=== PATIENT | male | born 1995 | race Caucasian/White ===

== ENCOUNTER 2024-12-04 09:19 | Outpatient (REF) | payer OTHER, SELFPAY ==
[2024-12-04 13:14] LABS: Appearance Urine Clear; Glucose Urine UA Negative (Negative); PH 7.5 (5.0-9.0); Specific Gravity - Urine 1.010 (1.005-1.025)
[2024-12-04 13:16] LABS: MANUAL DIFF FLAG NO
[2024-12-04 13:30] LABS: Hematocrit 45.8 % (42.0-52.0); Hemoglobin 15.6 g/dl (14.0-18.0); Imm Gran Abs Auto 0.01 X10*3/uL (0.00-0.03); Imm Gran Pct Auto 0.2 % (0.0-0.4); Lymphocytes Absolute Auto 2.0 X10*3/uL (1.2-4.9); Mean Corpuscular HGB Conc 34.1 g/dl (31.0-36.0); Mean Corpuscular Hemoglobin 30.6 pg (27.0-33.0); Mean Corpuscular Volume 90.0 fL (80.0-98.0); NRBC Abs Auto 0.000 X10*3/uL (0.0-0.012); NRBC Pct Auto 0.0 /100WBC (0.0-0.2); Platelet Count 333 X10*3/uL (160-400); Red Blood Count 5.09 X10*6/uL (4.60-5.80); White Blood Count 6.4 X10*3/uL (4.8-10.8)
[2024-12-04 14:14] LABS: Folate 13.7 ng/mL (> or = 4.0); Vitamin B12 613 pg/mL (200-900)
[2024-12-04 14:16] LABS: Alanine Aminotransferase 307 U/L (0-40); Albumin Level 4.7 g/dL (3.5-5.0); Alkaline Phosphatase 56 U/L (39-117); Anion Gap 10 (12-20); Aspartate Amino Transferase 750 U/L (5-37); Blood Urea Nitrogen 17 mg/dL (9-16); Calcium 9.8 mg/dL (8.4-10.2); Carbon Dioxide 30 mmol/L (22-29); Chloride 103 mmol/L (96-108); Cholesterol 211 mg/dL (<200); Estimated Glomerular Filt Rate > 60; HDL Cholesterol 57 mg/dL (>40); Potassium 3.9 mmol/L (3.3-5.1); Sodium 139 mmol/L (135-145); Total Protein 7.3 g/dL (6.5-8.0); Triglycerides 92 mg/dL (<150)
[2024-12-05 04:04] LABS: HBS Num1 16.38 mIU/mL (0-7.99); HBsAGNum1 0.50 S/CO (0.00-0.99); HIV Num 1 0.05 S/CO (0.00-0.99); Hepatitis B Surface Antigen Negative (Negative); ~HepC Num1 0.07 S/CO (0.00-0.79); ~Hepatitis B Surface Antibody REACTIVE (Nonreactive); ~Hepatitis C Antibody Nonreactive (Nonreactive)
[2024-12-08 12:53] LABS: VITAMIN D (1,25 OH) D3 47 pg/mL; Vit D (1,25-Dihydroxy) Total 47 pg/mL (18-72); Vitamin D (1,25 OH) D2 <8 pg/mL
== END 2024-12-04 09:20 | disposition home or self-care (01) ==
LOC: HO.HKASLDS 09:19
PROVIDERS: PCP Student in an Organized Health Care Education/Training Program; Visit Provider Student in an Organized Health Care Education/Training Program
DX: Z13.9 Encounter for screening, unspecified (principal); K21.9 Gastro-esophageal reflux disease without esophagitis; Z79.899 Other long term (current) drug therapy
CPT/HCPCS: 36415; 80053; 80061; 81003; 82607; 82652; 82746; 83036; 84443; 85025; 86706; 86803; 87340; 87389; 96127; 99202

== ENCOUNTER 2024-12-04 09:19 | Outpatient (AMB) | payer OTHER, SELFPAY ==
--- NOTE | 2024-12-04 09:26 | A.OFFPC_ITS ---
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: No Accompanied by: Self / Same As Patient Allergies No Known Allergies Allergy (Verified 12/04/24 09:33) Medication List - Last Reconciled 12/04/24 by Jonatan Heller MD famotidine 10 mg PO DAILY Tobacco use date assessed: 12/04/24 Dental Screening Dental Screen Date: 12/04/24 Did you have a dental visit in the last 12 months?: No Did you have a dental problem in the last 6 months where you did not have access to dental care?: No Was dental information given to patient?: Patient has dentist HPI HPI Comments History of Present Illness Details Consent Patient was informed and verbally consented to the use of an ambient scribe for clinic note documentation during this visit. History of Present Illness The patient is a 28-year-old male presenting with Gastroesophageal Reflux Disease (GERD). Gastroesophageal Reflux Disease (GERD): The patient reports having GERD for three years, initially managed with pantoprazole, which was ineffective, leading to self-initiation of famotidine seven months ago with good results. He has not undergone an endoscopy and expresses interest in the procedure for further evaluation, influenced by his girlfriend, a nurse. A Helicobacter pylori breath test conducted in November 2023 was negative. The onset of GERD symptoms coincided with his time in the , possibly related to dietary changes or stress, but no definitive cause was identified. He denies any history of hypertension, diabetes, or other chronic conditions, and his last medical consultation was in 2023. Medications: - Famotidine: Taken for management of GE RD, effective for symptom control. 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 - Substance Use: Light alcohol consumpti on, approximately three times a month. - Diet: Eats three meals a day at 8:00 a .m., noon, and 6:00 p.m., with a bedtime at 11:00 p.m. Diagnostic Results: - Helicobacter pylori breath test: Negat fabricio (November 2023). Review of Systems - Gastrointestinal: Reports effective ma nagement of GERD symptoms with famotidine. Denies nausea or vomiting. - General: Denies snoring, waking up gas ping for air, or sleep disturbances. 10-point ROS reviewed and negative excep t as noted in HPI Past Medical History - Gastroesophageal Reflux Disease (GERD) for three years. Health Maintenance - Screening tests: Comprehensive metabol ic panel, hemoglobin A1c, lipid panel, vitamin B12, folate, vitamin D, and urinalysis planned. Physical Exam General: Well-appearing, in no acute distress. Vital signs: Within normal limits. HEENT: Normocephalic, atraumatic. PERRLA, EOMI. Conjunctiva clear, sclera anicteric. Oropharynx clear, mucous membranes moist. TMs intact bilaterally. Neck: Supple, no lymphadenopathy, no thyromegaly, no JVD or carotid bruits. Cardiovascular: RRR, normal S1/S2, no murmurs, rubs, or gallops. Peripheral pulses 2+ and symmetric. No edema. Respiratory: Lungs clear to auscultation bilaterally, no wheezes, rales, or rhonchi. Normal effort. Abdomen: Soft, non-tender, non-distended. Normoactive bowel sounds. No hepatosplenomegaly, no masses. MSK: Full range of motion, no joint swelling or deformity. Normal gait. Skin: Warm, dry, intact. No rashes, lesions, or pallor. Neuro: Alert and oriented x3. Cranial nerves II-XII intact. Strength 5/5 throughout. Sensation intact. Reflexes 2+ symmetric. Normal coordination and gait. Psych: Appropriate mood and affect. Normal judgment and insight. Plan 1. Gastroesophageal Reflux Disease (Gerd ) - Continue famotidine as it is effective in managing symptoms. - Consider referral to gastroenterology for further evaluation if symptoms persist. - Plan for comprehensive metabolic panel , hemoglobin A1c, lipid panel, vitamin B12, folate, vitamin D, and urinalysis to assess overall health. Discussion Notes I discussed with the patient the continuation of famotidine for GERD management, given its effectiveness. We also considered a potential referral to gastroenterology for further evaluation if symptoms persist. I recommended a comprehensive metabolic panel and other screenings to assess his overall health. Patient Instructions - Continue taking famotidine as prescrib ed. - Return for follow-up in two weeks to chantel lopez lab results. - Consider gastroenterology referral if symptoms do not improve. Medical Decision Making The patient's GERD is well-managed with famotidine, which he initiated after pantoprazole was ineffective. Given the chronic nature of his symptoms and the negative H. pylori test, I considered a gastroenterology referral for further evaluation. Screening labs were ordered to assess his overall health status. Total time spent caring for the patient today was 30 minutes. This includes time spent before the visit reviewing the chart, time spent documenting, and time spent reviewing laboratory results, diagnostic imaging, medications, performing a medically necessary evaluation, counseling on diagnoses, care coordination, ordering appropriate tests, ordering appropriate medications, review of tests performed by other providers, reporting test results with the patient, c ommunication with other healthcare providers. [facility] Family History (Updated 12/04/24 @ 09:28 by Gabe Tovar MA) Mother No problems noted. Father No problems noted. Social History Housing: Apartment Patient Tobacco Use Status: Never used Tobacco service: Yes Current occupational status: employed Cognitive needs: No Hearing needs: No Vision needs: No Questionnaire PHQ-9 Over the last 2 weeks, how often have you been bothered by any of the following problems? 1. Little interest or pleasure in doing things: not at all 2. Feeling down, depressed, or hopeless: not at all 3. Trouble falling or staying asleep, or sleeping too much: not at all 4. Feeling tired or having little energy: not at all 5. Poor appetite or overeating: not at all 6. Feeling bad about yourself - or that you are a failure or have let yourself or your family down: not at all 7. Trouble concentrating on things, such as reading the newspaper or watching television: not at all 8. Moving or speaking so slowly that other people could have noticed. Or the opposite - being so fidgety or restless that you have been moving around a lot more than usual: not at all 9. Thoughts that you would be better off or of hurting yourself in some way: not at all Total score: 0 Depression Screening Interpretation: Negative Depression Screening Done: Yes Source: Developed by Drs. Mehnaz Cruz Kurt Kroenke and colleagues, with an educational gloria from [employer] Thrive Questionnaire Date Thrive assessed: 12/04/24 I am a: Patient What is your living situation today?: I have a steady place to live Within the past 12 months, did the food you bought not last and you didn't have the money to get more?: Never true Within the past 12 months, did you worry whether your food would run out before you got money to buy more?: Never true Do you have trouble paying for medicines?: No Do you have trouble getting transportation to medical appointments?: No Do you have trouble paying your heating and electricity bill?: No Do you have trouble taking care of your child, family member or friend?: No Are you currently unemployed and looking for a job?: No Are you interested in more education?: No Please select the resources that you would like help with: None Currently or been in a relationship where the following occur: No concerns reported THRIVE Score: 0 AUDIT C Alcohol Use Questionnaire (AUDIT-C) 1. How often do you have a drink containing alcohol?: 2-4 times a month 2. How many drinks containing alcohol do you have on a typical day when you are drinking?: 3 or 4 3. How often do you have six or more drinks on one occasion?: Less than monthly Total Score: 4 Score Reviewed/Action Taken: No ALFRED-7 AMB Questionnaire ALFRED-7 Feeling nervous, anxious, or on edge: 0 = Not at all Not being able to stop or control worryin = Not at all Worrying too much about different things: 0 = Not at all Trouble relaxin = Not at all Being so restless that it is hard to sit still: 0 = Not at all Becoming easily annoyed or irritable: 0 = Not at all Feeling afraid as if something awful might happen: 0 = Not at all Total ALFRED-7 score (0-4 normal; 5-9 mild; 10-14 moderate; 15-21 severe): 0 Source: Developed by Mehnaz Ruiz Kurt Kroenke and colleagues, with an educational gloria from [employer] ALFRED-7 Assessment Billing ALFRED-7 Assessment Tool: ALFRED-7 Assessment 63173 (neg) Physical exam (Primary Care) Vital Signs: Last Vital Signs Temp 97.9 F 12/04/24 09:32 Pulse 70 12/04/24 09:32 Resp 16 12/04/24 09:32 BP 136/75 12/04/24 09:32 Pulse Ox 100 12/04/24 09:32 Oxygen Delivery Method Room Air 12/04/24 09:32 BMI result Body Mass Index 20.9 Tobacco/Smoking Status: Tobacco use Status Tobacco use date assessed 12/04/24 12/04/24 09:28 Patient Tobacco Use Status Never used Tobacco 12/04/24 09:28 PHQ-9: PHQ-9 Score PHQ-9: Total score 0 12/04/24 09:54 Depression Screening Interpretation: Negative Thrive Assessment: Date of Thrive Assessment Date Thrive assessed 12/04/24 12/04/24 09:28 Currently or been in a relationship where the following occur: No concerns reported Coding Level of Care Code New Pt Level 4 (16071) Diagnoses GERD (gastroesophageal reflux disease) K21.9 Additional Codes ALFRED-7 Assessment Billing - ALFRED-7 Assessment Tool: ALFRED-7 Assessment 53927 ([id number]) Assessment & Plan Assessment & Plan (1) GERD (gastroesophageal reflux disease): Code(s): K21.9 - Gastro-esophageal reflux disease without esophagitis Plan Orders: Orders Complete Blood Count Auto Diff Today Z. - Encounter for screening, unspecified Comprehensive Met. Panel Today Z. - Encounter for screening, unspecified Hepatitis B Surface Antibody Today Z. - Encounter for screening, unspecified Hepatitis B Surface Antigen Today Z13.9 - Encounter for screening, unspecified Lipid Panel Today Z13.9 - Encounter for screening, unspecified TSH reflex Free T4 Today Z13.9 - Encounter for screening, unspecified Vitamin B12 and Folate Today Z13.9 - Encounter for screening, unspecified Hemoglobin A1c Today Z13.9 - Encounter for screening, unspecified Hepatitis C Antibody Today Z13.9 - Encounter for screening, unspecified HIV Ab/Ag Today Z13.9 - Encounter for screening, unspecified UA CC w/rflx Micro + Cult Today Z13.9 - Encounter for screening, unspecified Vitamin D 1,25 dihydroxy Today Z13.9 - Encounter for screening, unspecified Medications: New famotidine 10 mg PO DAILY 90 tabs 0RF
[2024-12-04 09:32] VITALS: BP 136/75; PULSE 70; RESP 16; TEMP 36.6; O2SAT 100; BMI 20.9
== END 2024-12-04 10:01 | disposition home or self-care (01) ==
LOC: HO.HMCFMS 09:20
PROVIDERS: PCP Student in an Organized Health Care Education/Training Program; Visit Provider Student in an Organized Health Care Education/Training Program
DX: K21.9 Gastro-esophageal reflux disease without esophagitis (principal)

== ENCOUNTER 2024-12-18 12:58 | Outpatient (AMB) | payer OTHER, SELFPAY ==
[2024-12-18 13:00] VITALS: BP 133/63; PULSE 83; RESP 16; TEMP 36.6; O2SAT 100
--- NOTE | 2024-12-18 13:00 | A.OFFPC_ITS ---
Vital Signs 12/18/24 13:00 Height 5 ft 11.26 in BP 133/63 Blood Pressure Location Rt brachial Position Sitting Respiration 16 Pulse 83 Pulse Source Pulse Oximeter Temp 98 F Temp Source Oral Pulse Oximetry (%) 100 Oxygen Delivery Method Room Air Intake Visit Reasons: 2 week follow up Allergies No Known Allergies Allergy (Verified 12/18/24 13:03) Tobacco use date assessed: 12/04/24 Dental Screening Dental Screen Date: 12/04/24 HPI HPI Comments History of Present Illness Details History of Present Illness The patient is a 28-year-old male presenting for a review of laboratory results. Abnormal liver function tests: The patient's recent lab work revealed extremely elevated AST and ALT levels, which is a new finding. His last laboratory tests in 2022 were normal. Tests for hepatitis B and C were negative. He reports taking a men's multivitamin, vitamin D, magnesium, and creatinine supplements. He states he is not a heavy alcohol drinker. Hypercholesterolemia: Recent lab results indicate an elevated total cholesterol of 211 mg/dL and an elevated LDL cholesterol of 136 mg/dL. 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 - Substance use: Reports he is not a big drinker and was advised to abstain from alcohol. Diagnostic Results: - CBC: White blood cells, red blood cell s, hemoglobin, and hematocrit are normal. - CMP: Sodium, potassium, and glucose ar e normal. - Renal function: Normal. - Liver function tests: AST and ALT are extremely elevated. - Lipid panel: Total cholesterol is 211 mg/dL and LDL is 136 mg/dL. - Hepatitis panel: Hepatitis B and C are normal. - Vitamins: Vitamin B12, vitamin D, and folate are normal. - Thyroid function: Normal. - Urinalysis: Normal. Past Medical History - Reports no prior medical problems; sta mani he has never had anything wrong with me. - Last laboratory evaluation in 2022 was normal. Health Maintenance - Review of screening laboratory studies . - Counseled on supplement use and to dis continue creatinine. - Counseled on alcohol avoidance. [facility] Medical History (Updated 12/18/24 @ 14:55 by Jonatan Heller MD) Dyslipidemia Elevated liver enzymes Family History (Updated 12/04/24 @ 09:28 by Gabe Tovar MA) Mother No problems noted. Father No problems noted. Social History Housing: Apartment Patient Tobacco Use Status: Never used Tobacco service: Yes Current occupational status: employed Cognitive needs: No Hearing needs: No Vision needs: No Questionnaire Thrive Questionnaire Date Thrive assessed: 12/04/24 I am a: Patient What is your living situation today?: I have a steady place to live Within the past 12 months, did the food you bought not last and you didn't have the money to get more?: Never true Within the past 12 months, did you worry whether your food would run out before you got money to buy more?: Never true Do you have trouble paying for medicines?: No Do you have trouble getting transportation to medical appointments?: No Do you have trouble paying your heating and electricity bill?: No Do you have trouble taking care of your child, family member or friend?: No Are you currently unemployed and looking for a job?: No Are you interested in more education?: No Please select the resources that you would like help with: None Currently or been in a relationship where the following occur: No concerns reported THRIVE Score: 0 Review of Systems Narrative Review of Systems - Constitutional: Denies any previous health issues. - Psychiatric: Reports feeling worried and anxious about his lab results. 10-point ROS reviewed and negative except as noted in HPI Physical exam (Primary Care) Vital Signs: Last Vital Signs Temp 98 F 12/18/24 13:00 Pulse 83 12/18/24 13:00 Resp 16 12/18/24 13:00 BP 133/63 12/18/24 13:00 Pulse Ox 100 12/18/24 13:00 Oxygen Delivery Method Room Air 12/18/24 13:00 Tobacco/Smoking Status: Tobacco use Status Tobacco use date assessed 12/04/24 12/18/24 13:02 Patient Tobacco Use Status Never used Tobacco 12/18/24 13:02 Thrive Assessment: Date of Thrive Assessment Date Thrive assessed 12/04/24 12/18/24 13:02 Currently or been in a relationship where the following occur: No concerns reported Narrative Physical Exam General: Well-appearing, in no acute distress. Vital signs: Within normal limits. HEENT: Normocephalic, atraumatic. PERRLA, EOMI. Conjunctiva clear, sclera anicteric. Oropharynx clear, mucous membranes moist. TMs intact bilaterally. Neck: Supple, no lymphadenopathy, no thyromegaly, no JVD or carotid bruits. Cardiovascular: RRR, normal S1/S2, no murmurs, rubs, or gallops. Peripheral pulses 2+ and symmetric. No edema. Respiratory: Lungs clear to auscultation bilaterally, no wheezes, rales, or rhonchi. Normal effort. Abdomen: Soft, non-tender, non-distended. Normoactive bowel sounds. No hepatosplenomegaly, no masses. MSK: Full range of motion, no joint swelling or deformity. Normal gait. Skin: Warm, dry, intact. No rashes, lesions, or pallor. Neuro: Alert and oriented x3. Cranial nerves II-XII intact. Strength 5/5 throughout. Sensation intact. Reflexes 2+ symmetric. Normal coordination and gait. Psych: Appropriate mood and affect. Normal judgment and insight. 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 The patient provided verbal consent to proceed with the recommended workup. Patient was informed and verbally consented to the use of an ambient scribe for clinic note documentation during this visit. Plan 1. Abnormal Liver Function Tests - The etiology of the elevated liver enzymes is unclear; however, viral hepatitis B and C have been ruled out. - There is suspicion for supplement-induced hepatotoxicity, possibly related to creatinine or impurities within the supplement. - A liver ultrasound will be ordered to evaluate for underlying structural abnormalities such as fatty liver. - The patient was advised to discontinue taking his creatinine supplement. - The patient was instructed to abstain from all alcohol consumption. - Additional fasting labs were ordered for tomorrow. - Liver function tests will be repeated in four weeks to monitor for resolution. 2. Hypercholesterolemia - Elevated total cholesterol and LDL were noted on recent labs. - This will be monitored, with the immediate focus on the evaluation of the patient's elevated liver enzymes. Discussion Notes I reviewed the patient's laboratory results, which showed normal cell counts, renal function, and electrolytes, but revealed extremely elevated liver enzymes (AST and ALT) and elevated cholesterol. I informed him that while the cause is not yet clear, tests for hepatitis B and C are negative. We discussed the potential for his supplements, specifically creatinine, to be causing the liver enzyme elevation, possibly due to impurities. I reassured the patient not to be overly anxious as we have identified the issue and will investigate further. I advised him to stop the creatinine supplement and to abstain from alcohol completely. The plan, which he agreed to, includes a liver ultrasound, fasting labs tomorrow, and a repeat of his liver function tests in four weeks to see if the levels normalize. Patient Instructions - Stop taking your creatinine supplement for now. - You may continue taking your multivitamin and vitamin D. - Do not drink any alcohol. - Go to the lab tomorrow morning for a fasting blood draw; this means no food or drink other than water before the test. - The lab is a walk-in, so you do not need an appointment time. - I have ordered a liver ultrasound; the imaging center will call you to schedule this. - We will need to repeat your liver blood tests in about four weeks. Medical Decision Making The patient is a 28-year-old male with new-onset, significantly elevated liver transaminases and hypercholesterolemia discovered on routine labs. The primary concern is the transaminitis, as this is a new finding compared to his normal labs from 2022. The differential diagnosis includes supplement-induced hepatotoxicity, non-alcoholic fatty liver disease (NAFLD), and viral hepatitis. Viral hepatitis is less likely as his hepatitis B and C serologies are negative. Given his use of multiple supplements, drug-induced liver injury (DILI) is a strong consideration, with creatinine being a potential offending agent, possibly due to impurities. The plan is to investigate these possibilities by first removing potential hepatotoxins; I have advised him to cease creatinine and all alcohol. A liver ultrasound is ordered to assess for steatosis or other structural abnormalities. Follow-up LFTs in four weeks will be crucial to see if the transaminitis resolves after discontinuing the supplement, which would support a diagnosis of DILI. Fasting labs tomorrow will establish a current baseline. Total time spent caring for the patient today was 20 minutes. This includes time spent before the visit reviewing the chart, time spent documenting, and time spent reviewing laboratory results, diagnostic imaging, medications, performing a medically necessary evaluation, counseling on diagnoses, care coordination, ordering appropriate tests, ordering appropriate medications, review of tests performed by other providers, reporting test results with the patient, communication with other healthcare providers. Orders: Orders Alpha 1 Anti-trypsin Today R74.8 - Abnormal levels of other serum enzymes Ceruloplasmin Today R74.8 - Abnormal levels of other serum enzymes Ferritin Today R74.8 - Abnormal levels of other serum enzymes Lactate Dehydrogenase Today R74.8 - Abnormal levels of other serum enzymes Smooth Muscle Antibody Today R74.8 - Abnormal levels of other serum enzymes Hepatitis A IgG Today R74.8 - Abnormal levels of other serum enzymes US abdomen limited Today R74.8 - Abnormal levels of other serum enzymes Gamma Glutamyl Transpeptidase Today R74.8 - Abnormal levels of other serum enzymes Mitochondrial Antibody Today R74.8 - Abnormal levels of other serum enzymes DELONTE Reflex Titer and Pattern Today R74.8 - Abnormal levels of other serum enzymes Monotest Today R74.8 - Abnormal levels of other serum enzymes IRON PROFILE Today R74.8 - Abnormal levels of other serum enzymes
--- OUTSIDE RECORDS SUMMARY | 2024-12-18 15:43 | XMS_ITS | Encounter Summary ---
Author Organization [facility] Address [address] [place] [address] Care Team Providers Care Insulating Machine Operator Name Role Phone Eloina Kyle NP Primary Care Provider Agus Christensen MD Primary Care Provider [phone] Encounter Details Date Type Department Care Team (Late st Contact Info) Description 04/06/2020 Orders Only [facility] [address] [place] [address] Eloina Kyle NP Social History Tobacco Use Types Packs/Day Years Used Date Smoking Tobacco: Never Smokeless Tobacco: Never Alcohol Use Standard Drinks/Week Comments Not Asked 0 (1 standard drink = 0.6 oz pur e alcohol) Sex and Gender Information Value Date Recorded Sex Assigned at Male 05/06/2020 3:49 PM EDT Legal Sex Male 8:44 PM EST Gender Identity Male 05/06/2020 3:49 PM EDT Sexual Orientation Straight 05/06/2020 3: 49 PM EDT documented as of this encounter Plan of Treatment Not on file documented as of this encounter Results * Due to [place] state law, this organization might not be sharing negative HIV tests. * HEMOGLOBIN A1C (05/28/2020 12:10 PM EDT) Hemoglobin A1C 4.7 <5.7 % of total Hgb [facility] Comment: For the purpose of screening for the presence of diabetes: <5.7% Consistent with the absence of diabetes 5.7-6.4% Consistent with increased risk for diabetes (prediabetes) > or =6.5% Consistent with diabetes This assay result is consistent with a decreased risk of diabetes. Currently, no consensus exists regarding use of hemoglobin A1c for diagnosis of diabetes in children. According to [place] Diabetes Association (ADA) guidelines, hemoglobin A1c <7.0% represents optimal control in non- diabetic patients. Different metrics may apply to specific patient populations. Standards of Medical Care in Diabetes(ADA). Estimated Average Glucose 90 mg/dL (calc) [facility] 05/28/2020 12:1 0 PM EDT 05/29/2020 12:58 AM EDT Narrative Resulting Agency Comment [id number] us Eloina Kyle NP LABORATORY Final Result [facility] [address] [place] [address] documented in this encounter Visit Diagnoses Diagnosis Screening for diabetes mellitus documented in this encounter Care Teams Insulating Machine Operator Relationship Specialty Start Date End Date Eloina Kyle NP PCP - General Internal Medicine 03/25/20 06/18/23 Agus Murdock MD [address] [place] [id number] PCP - General Family Medicine 09/26/23 documented as of this encounter
--- OUTSIDE RECORDS SUMMARY | 2024-12-18 15:43 | XMS_ITS | Encounter Summary ---
Author Organization [facility] Address [address] [place] [address] Care Team Providers Care Administrative Assistant Data Entry Name Role Phone Eloina Kyle NP Primary Care Provider Agus Christensen MD Primary Care Provider [phone] Reason for Visit * Reason Comments Labs/orders Encounter Details Date Type Department Care Team (Late st Contact Info) Description 08/27/2021 Telephone [facility] Night Triage [address] [place] [address] Eloina Kyle NP Labs/orders Social History Tobacco Use Types Packs/Day Years Used Date Smoking Tobacco: Never Smokeless Tobacco: Current Comments:nicotine salt packe ts. 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 Message to provider for orders. PLEASE ADVISE ON pt c/o mild pain, swollen legs, nausea r/t to rx ATB/ Doxycycline Monohydrate (MONODOX) 100 MG capsule. Per pt only one day left to finish the ATB regimen and pt asked to finish it or discontinue. No respiratory distress, confusion, fever were reported. Nurse recommended to keep to monitor the current conditions, to finish the rx Doxycycline Monohydrate (MONODOX) 100 MG capsule regiment, to elevate the swollen legs, keep good nutrition and hydration, in case of respiratory distress, confusion, fever call 911, go to ER or Urgent Care. Nurse recommended to communicate to Virtual Care Team for the further evaluation by PCP. Chief Complaint: Patient, Obinna Harvey 25 y.o. male calling with complaint of mild pain, swollen legs, nausea r/t to rx ATB/Doxycycline Monohydrate (MONODOX) 100 MG capsule. Per pt only one day left to finish the ATB regimen and pt asked to finish it or discontinue. No respiratory distress, confusion, fever were reported. Onset occurred: today Emergent symptoms: none Allergies: has No Known Allergies. Medications: No current outpatient medications on file. Pertinent hx: none Current home treatment: none. Effectiveness of current home tx: effective documented in this encounter Plan of Treatment Not on file documented as of this encounter Visit Diagnoses Not on filedocumented in this encounter Care Teams Administrative Assistant Data Entry Relationship Specialty Start Date End Date Eloina Kyle NP PCP - General Internal Medicine 03/25/20 06/18/23 Agus Murdock MD [address] [place] [address] PCP - General Family Medicine 09/26/23 documented as of this encounter
--- OUTSIDE RECORDS SUMMARY | 2024-12-18 15:43 | XMS_ITS | Encounter Summary ---
Author Organization [facility] Address [address] [place] [address] Care Team Providers Care Lamp Shade Maker Name Role Phone Eloina Kyle NP Primary Care Provider Agus Christensen MD Primary Care Provider [phone] Encounter Details Date Type Department Care Team (Late st Contact Info) Description 08/12/2021 Orders Only [facility] [address] [place] [address] Eloina Kyle NP Social History Tobacco Use Types Packs/Day Years Used Date Smoking Tobacco: Never Smokeless Tobacco: Current Comments:nicotine salt packe ts. 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 Procedure Name Priority Date/Time Associated Diagnosis Comments VENIPUNCTURE Routine 08/12/2021 1:26 PM EDT [place] exposure CBC INCLUDES DIFFERENTIAL AND PLATELET COUNT Routine 08/12/2021 1:26 PM EDT Fatigue, unspecified type TSH, 3RD GENERATION Routine 08/12/2021 1 :26 PM EDT Fatigue, unspecified type IRON PROFILE (IRON/TIBC), SERUM Routine 08/12/2021 1:26 PM EDT Fatigue, unspecified type FERRITIN Routine 08/12/2021 1:26 PM EDT Fatigue, unspecified type COMPREHENSIVE METABOLIC PANEL WITH GFR Routine 08/12/2021 1:26 PM EDT Fatigue, unspecified type documented in this encounter Results * Due to [place] state law, this organization might not be sharing negative HIV tests. * TSH, 3RD GENERATION (08/12/2021 1:26 PM EDT) TSH (Thyrotropin) 0.71 0.40 - 4.50 uIU/ml [facility] 08/12/2021 1:26 PM EDT 08/12/2021 1:26 PM EDT Narrative [facility] - 08/12/2021 2:50 PM EDT Patient's primary care provider is: N/A Testing performed at: [facility], [address] [place] [address], [id number], Slubber Frame Changer: Winston Cordova MD Eloina Kyle NP LABORATORY Final Result [address] [address] DIRECTOR Winston Cordova MD * IRON PROFILE (IRON/TIBC), SERUM (08/12/2021 1:26 PM EDT) Iron 92 65 - 175 ug/dL [facility] Iron Binding Capacity, Unsaturated 307.00 250.00 - 425.00 [facility] Iron saturation 29.97 20.00 - 50.00 % [facility] 08/12/2021 1:26 PM EDT 08/12/2021 1:26 PM EDT Narrative [facility] - 08/12/2021 2:50 PM EDT Patient's primary care provider is: N/A Testing performed at: [facility], [address] [place] [address], [address], Slubber Frame Changer: Winston Cordova MD Eloina Kyle NP LABORATORY Final Result Performing Organization Address City/State/[facility] Co de Phone Number [address] [address] DIRECTOR Winston Cordova MD * CBC INCLUDES DIFFERENTIAL AND PLATELET COUNT (08/12/2021 1:26 PM EDT) WBC 9.7 3.8 - 10.8 K/uL [facility] Neutrophils # 7.2 1.5 - 7.8 K/uL [facility] Immature Granulocytes # 0.0 0.0 - 0.1 K/uL [facility] Lymphocytes # 1.8 0.9 - 3.9 K/uL [facility] Monocytes # 0.5 0.2 - 1.0 K/uL [facility] Eosinophils # 0.1 0.0 - 0.5 K/uL [facility] Basophils # 0.0 0.0 - 0.2 K/uL [facility] Neutrophils % 74.8 % [facility] Immature Granulocytes % 0.10 % [facility] Lymphocytes % 19.0 % [facility] Monocytes % 5.4 % [facility] Eosinophils % 0.5 % [facility] Basophils % 0.2 % [facility] RBC 5.12 4.20 - 5.80 M/uL [facility] Hemoglobin 16.1 13.2 - 17.1 g/dL [facility] Hematocrit 47.0 38.5 - 50.0 % [facility] MCV 91.8 80.0 - 100.0 fl [facility] MCH 31.4 27.0 - 33.0 pg [facility] MCHC 34.3 32.0 - 36.0 g/dL [facility] RDW 12.7 11.0 - 15.0 % [facility] PLT 387 140 - 400 K/uL [facility] 08/12/2021 1:26 PM EDT 08/12/2021 1:26 PM EDT Narrative [facility] - 08/12/2021 2:15 PM EDT Patient's primary care provider is: N/A Testing performed at: [facility], [address] [place] [address], [address], Slubber Frame Changer: Winston Cordova MD Eloina Kyle NP LAB SAME DAY RESULT Final Res ult [address] [address] DIRECTOR Winston Cordova MD * FERRITIN (08/12/2021 1:26 PM EDT) Ferritin 143 22 - 322 ng/mL [facility] 08/12/2021 1:26 PM EDT 08/12/2021 1:26 PM EDT Narrative [facility] - 08/12/2021 2:50 PM EDT Patient's primary care provider is: N/A Testing performed at: [facility], [address] [place] [address], [address], Slubber Frame Changer: Winston Cordova MD Eloina Kyle NP LABORATORY Final Result Performing Organization Address [facility]/ZIP Co de Phone Number [address] [address] DIRECTOR Winston Cordova MD * COMPREHENSIVE METABOLIC PANEL WITH GFR (08/12/2021 1:26 PM EDT) Glucose 75 65 - 99 mg/dl [facility] Urea Nitrogen Blood (BUN) 13 7 - 25 mg/dL [facility] Creatinine 1.03 0.50 - 1.20 mg/dL [facility] Sodium 142 135 - 146 mmo/L [facility] Potassium 4.3 3.5 - 5.3 mmol/L [facility] Chloride 104 98 - 107 mmo/L [facility] Calcium 10.4 8.5 - 10.4 mg/dL [facility] Protein Total (Serum) 6.9 6.0 - 8.3 g/dL [facility] Albumin 5.0 3.5 - 5.3 g/dL [facility] Globulin 2 2 - 4 G/DL [facility] Bilirubin Total 0.40 0.00 - 1.20 mg/dL [facility] Alkaline phosphatase 60 40 - 115 U/L [facility] AST (SGOT) 16 <45 U/L [facility] ALT (SGPT) 18 <67 U/L [facility] Carbon dioxide 27 23 - 33 mmol/L [facility] GFR 95 >60 ml/min [facility] Comment:If the patient is Af rican Bangladeshi, please multiply result by 1.210 08/12/2021 1:26 PM EDT 08/12/2021 1:26 PM EDT Narrative [facility] - 08/12/2021 2:50 PM EDT Patient's primary care provider is: N/A Testing performed at: [facility], [address] [place] [address], [address], Slubber Frame Changer: Winston Cordova MD Eloina Kyle LUNCHROOM ATTENDANT LABORATORY Final Result Performing Organization Address [facility]/ZIP Co de Phone Number [address] [address] DIRECTOR Winston Cordova MD * MONONUCLEOSIS SCREEN (HETEROPHILE) (08/12/2021 1:26 PM EDT) MONOTEST Negative Negative [facility] 08/12/2021 1:26 PM EDT 08/12/2021 1:26 PM EDT Narrative [facility] - 08/12/2021 2:32 PM EDT Patient's primary care provider is: N/A Testing performed at: [facility], [address] [place] [address], [address], Slubber Frame Changer: Winston Cordova MD Eloina Kyle LUNCHROOM ATTENDANT LAB SAME DAY RESULT Final Res ult [address] [address] DIRECTOR Winston Cordova MD documented in this encounter Visit Diagnoses Diagnosis Blount exposure Contact with or exposure to other viral diseases Fatigue, unspecified type documented in this encounter Care Teams Lamp Shade Maker Relationship Specialty Start Date End Date Eloina Kyle NP PCP - General Internal Medicine 03/25/20 06/18/23 Agus Murdock MD [address] [place] [id number] PCP - General Family Medicine 09/26/23 documented as of this encounter
--- OUTSIDE RECORDS SUMMARY | 2024-12-18 15:44 | XMS_ITS | Encounter Summary ---
Author Organization [facility] Address [address] [place] [address] Care Team Providers Care Manufacturing Maintenance Technician Name Role Phone Agus Murdock MD Primary Care Provider [phone] Encounter Details Date Type Department Care Team (Late st Contact Info) Description 10/17/2023 Orders Only [facility] [address] [place] [id number] Agus Murdock MD [address] [place] [address] Social History Tobacco Use Types Packs/Day Years Used Date Smoking Tobacco: Never Smokeless Tobacco: Former Comments:nicotine salt packe ts. Alcohol Use Standard Drinks/Week Comments Yes 0 (1 standard drink = 0.6 oz pur e alcohol) 12 drinks a week PHQ-2 Answer Date Recorded [facility] PHQ-2 SEVERITY SCORE (Range 0-6) 0 05/06/2020 Intimate Partner Violence Answer Date R ecorded Fear of Current or Ex-Partner Not on file Emotionally Abused Not on file 09/22/2022 Physically Abused Not on file 09/22/2022 Sexually Abused Not on file 09/22/2022 Feel Safe at Home Not on file 09/22/2022 Sex and Gender Information Value Date Recorded Sex Assigned at Male 05/06/2020 3:49 PM EDT Legal Sex Male 8:44 PM EST Gender Identity Male 05/06/2020 3:49 PM EDT Sexual Orientation Straight 05/06/2020 3: 49 PM EDT Occupation Industry 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 Procedure Name Priority Date/Time Associated Diagnosis Comments HELICOBACTER PYLORI UREA BREATH TEST (UBIT-(R)) Routine 10/17/2023 1:33 PM EDT Acid indigestion documented in this encounter Results * Due to [place] [employer] law, this organization might not be sharing negative HIV tests. * HELICOBACTER PYLORI UREA BREATH TEST (UBIT-(R)) (10/17/2023 1:33 PM EDT) Urea Breath Test, Infra-Red (Ubit) NOT DETECTED NOT DETECTED [facility] Comment: Antimicrobials, proton pump inhibitors, and bismuth preparations are known to suppress H. pylori, and ingestion of these prior to H. pylori diagnostic testing may lead to false negative results. If clinically indicated, the test may be repeated on a new specimen obtained two weeks after discontinuing treatment. However, a positive result is still clinically valid. 10/17/2023 1:33 PM EDT 10/17/2023 11:33 PM EDT Narrative Resulting Agency Comment [id number] us Agus Murdock MD LABORATORY Final Res ult Performing Organization Address City/State/[facility] Co de Phone Number [facility] [address] [place] [address] documented in this encounter Visit Diagnoses Diagnosis Acid indigestion Dyspepsia and other specified disorders of function of stomach documented in this encounter Care Teams Manufacturing Maintenance Technician Relationship Specialty Start Date End Date Agus Murdock MD [address] [place] [id number] PCP - General Family Medicine 09/26/23 documented as of this encounter
--- OUTSIDE RECORDS SUMMARY | 2024-12-18 15:44 | XMS_ITS | Encounter Summary ---
Author Organization [facility] Address [address] [place] [address] Care Team Providers Care Fireworks Display Specialist Name Role Phone Agus Murdock MD Primary Care Provider [phone] Encounter Details Date Type Department Care Team (Late st Contact Info) Description 11/29/2023 Orders Only [facility] [address] [place] [phone] Agus Murdock MD [address] [place] [address] Social History Tobacco Use Types Packs/Day Years Used Date Smoking Tobacco: Never Smokeless Tobacco: Former Comments:nicotine salt packe ts. 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 Procedure Name Priority Date/Time Associated Diagnosis Comments VITAMIN B12 (CYANOCOBALAMIN), SERUM Routine 11/29/2023 8:24 AM EDT Brain fog VITAMIN D, 25-HYDROXY, TOTAL, IMMUNOASSAY Routine 11/29/2023 8:24 AM EDT Brain fog documented in this encounter Results * Due to [place] [employer] law, this organization might not be sharing negative HIV tests. * VITAMIN B12 (CYANOCOBALAMIN), SERUM (11/29/2023 8:24 AM EDT) Vitamin B12 (Cobalamins) 879 211 - 946 pg/mL [facility] 11/29/2023 8:24 AM EDT 11/29/2023 8:24 AM EDT Narrative [facility] - 11/29/2023 10:38 AM EDT Patient's primary care provider is: N/A Testing performed at: [facility], [address] [place] [address], [id number], Prototype Machinist: Winston Cordova MD Agus Murdock MD LABORATORY Final Res ult [address] [address] DIRECTOR Winston Cordova MD * VITAMIN D, 25-HYDROXY, TOTAL, IMMUNOASSAY (11/29/2023 8:24 AM EDT) VIT D, 25-OH, TOTAL 30 >29 ng/mL [facility] Comment: Vitamin D Status 25-OH Vitamin D: Deficiency: <20 ng/mL Insufficiency: 20-29 ng/mL Optimal: > or = 30 ng/mL 11/29/2023 8:24 AM EDT 11/29/2023 8:24 AM EDT Narrative [facility] - 11/29/2023 10:38 AM EDT Patient's primary care provider is: N/A Testing performed at: [facility], [address] [place] [address], [id number], Prototype Machinist: Winston Cordova MD us Agus Murdock MD LABORATORY Final Res ult [address] [address] DIRECTOR Winston Cordova MD documented in this encounter Visit Diagnoses Diagnosis Brain fog documented in this encounter Care Teams Fireworks Display Specialist Relationship Specialty Start Date End Date Agus Murdock MD [address] [place] [id number] PCP - General Family Medicine 09/26/23 documented as of this encounter
--- OUTSIDE RECORDS SUMMARY | 2024-12-18 15:44 | XMS_ITS | Encounter Summary ---
Author Organization [facility] Address [address] [place] [address] Care Team Providers Care Tree Trimming Line Technician Name Role Phone Eloina Kyle NP Primary Care Provider Agus Christensen MD Primary Care Provider [phone] Encounter Details Date Type Department Care Team (Late st Contact Info) Description 05/28/2020 Orders Only [facility] [address] [place] [address] Eloina Kyle NP Social History Tobacco Use Types Packs/Day Years Used Date Smoking Tobacco: Never Smokeless Tobacco: Never Alcohol Use Standard Drinks/Week Comments Not Asked 0 (1 standard drink = 0.6 oz pur e alcohol) PHQ-2 [facility] SEVERITY SCORE (Range 0-6) 0 05/06/2020 Sex and Gender Information Value Date Recorded Sex Assigned at Male 05/06/2020 3:49 PM EDT Legal Sex Male 8:44 PM EST Gender Identity Male 05/06/2020 3:49 PM EDT Sexual Orientation Straight 05/06/2020 3: 49 PM EDT Occupation Industry Job Start Date Job End Date 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 No / Unsure 05/28/2020 11:37 AM EDT documented as of this encounter Miscellaneous Notes * Result Encounter Note - Eloina Kyle - 05/28/2020 12:10 PM EDT All normal/stable, MyChart message sent to patient documented in this encounter Plan of Treatment Not on file documented as of this encounter Procedures * Due to [place] Sil[place] law, this organization might not be sharing negative HIV tests. Procedure Name Priority Date/Time Associated Diagnosis Comments VENIPUNCTURE Routine 05/28/2020 12:10 PM EDT Screening for diabetes mellitus LIPID PANEL WITH REFLEX TO DIRECT LDL Routine 05/28/2020 12:10 PM EDT Lipid screening documented in this encounter Results * Due to [place] Sil[place] law, this organization might not be sharing negative HIV tests. * LIPID PANEL WITH REFLEX TO DIRECT LDL (05/28/2020 12:10 PM EDT) Cholesterol 159 <200 mg/dL [facility] HDL Cholesterol 54 > OR = 40 mg/dL [facility] Triglyceride 97 <150 mg/dL [facility] LDL Cholesterol 86 mg/dL (calc) [facility] Comment: Reference range: <100 Desirable range <100 mg/dL for primary prevention; <70 mg/dL for patients with CHD or diabetic patients with > or = 2 CHD risk factors. LDL-C is now calculated using the Lj-Nelda calculation, which is a validated novel method providing better accuracy than the Friedewald equation in the estimation of LDL-C. Lj MONTESINOS et al. ANGÉLICA. 2013;310(19): 0243-2668 (http://education.cooala - your brands.Personaling/faq/BOC760) CHOL/HDL Ratio 2.9 <5.0 (calc) [facility] Cholesterol Non-HDL 105 <130 mg/dL (calc) [facility] Comment: For patients with diabetes plus 1 major ASCVD risk factor, treating to a non-HDL-C goal of <100 mg/dL (LDL-C of <70 mg/dL) is considered a therapeutic option. 05/28/2020 12:1 0 PM EDT 05/29/2020 12:58 AM EDT Narrative Resulting Agency Comment [id number] Eloina Kyle CLIENT RELATIONSHIP CONSULTANT LABORATORY Final Result Performing Organization Address [facility] Co de Phone Number [facility] [address] [place] [address] * HEMOGLOBIN A1C (05/28/2020 12:10 PM EDT) [...] diagnosis of diabetes in children. According to [place] Diabetes Association (ADA) guidelines, hemoglobin A1c <7.0% represents optimal control in non- diabetic patients. Different metrics may apply to specific patient populations. Standards of Medical Care in Diabetes(ADA). Estimated Average Glucose 90 mg/dL (calc) [facility] 05/28/2020 12:1 0 PM EDT 05/29/2020 12:58 AM EDT Narrative Resulting Agency Comment [id number] Eloina Kyel CLIENT RELATIONSHIP CONSULTANT [facility] Final Result Performing Organization Address [facility] Co de Phone Number [facility] [address] [place] [address] documented in this encounter Visit Diagnoses Diagnosis Screening for diabetes mellitus Lipid screening Screening for lipoid disorders documented in this encounter Care Teams Tree Trimming Line Technician Relationship Specialty Start Date End Date Eloina Kyle NP PCP - General Internal Medicine 03/25/20 06/18/23 Agus Murdock MD [address] [place] [id number] PCP - General Family Medicine 09/26/23 documented as of this encounter
--- OUTSIDE RECORDS SUMMARY | 2024-12-18 15:44 | XMS_ITS | Clinical Summary ---
Author Organization [facility] ity Address [address] [place] [address] Care Team Providers Care Portal Developer Name Role Phone Unavailable Primary Care Provider Unavailabl e Social History Tobacco Use Types Packs/Day Years Used Date Smoking Tobacco: Never Assessed Sex and Gender Information Value Date Recorded Sex Assigned at Not on file Legal Sex Male 12:41 PM EST Gender Identity Not on file Sexual Orientation Not on file Plan of Treatment Health Maintenance Due Date Last Done Comments HPV Vaccines (1 - Male 3-dos e series) 2012 DTaP,Tdap,and Td Vaccines (1 - Tdap) 2016 Hepatitis B Vaccines (1 of 3 - 19+ 3-dose series) 2016 Depression Screening 02/14/2024 COVID-19 Vaccine (1 - 2023-2 5 season) 2024 Influenza Vaccine (#1) 2024 RSV Immunization Adult Patie nts (1 - 1-dose 75+ series) 2072 HIB Vaccines Aged Out No longer eligi ble based on patient's age to complete this topic Hepatitis A Vaccines Aged Out No long er eligible based on patient's age to complete this topic IPV Vaccines Aged Out No longer eligi ble based on patient's age to complete this topic MMR Vaccines Aged Out No longer eligi ble based on patient's age to complete this topic Meningococcal ACWY Vaccine Aged Out N o longer eligible based on patient's age to complete this topic Meningococcal B Vaccine Aged Out No l onger eligible based on patient's age to complete this topic Pneumococcal Vaccine: Pediat rics (0 to 5 Years) and At-Risk Patients (6 to 49 Years) Aged Out No longer eligible b ased on patient's age to complete this topic RSV Immunization Patients Un alyson 20 months Aged Out No longer eligible b ased on patient's age to complete this topic Varicella Vaccines Aged Out No longer eligible based on patient's age to complete this topic
--- OUTSIDE RECORDS SUMMARY | 2024-12-18 15:44 | XMS_ITS | Clinical Summary ---
Author Organization [facility] Address [address] [place] [address] Care Team Providers Care Division Sales Manager Name Role Phone Agus Murdock MD Primary Care Provider [phone] Allergies No known active allergies Medications Pantoprazole Sodium (PROTONIX) 40 MG EC tabletIndication s:Gastroesophage al reflux disease without esophagitis Take one tablet (40 mg total) by mouth 1 (one) time each day before breakfast. 30 tablet 10/17/2023 Active Active Problems Problem Noted Date Diagnosed Date Hearing loss of left ear 10/17/2023 Overview (10/17/2023): Found on annual exams in the (10/17/2023) Gastroesophageal reflux disease without esophagi tis 05/03/2022 Overview (05/03/2022): On omeprazole Sore throat 12/20/2021 Overview (12/20/2021): 12/20/2021: Present for several months. Main concern is coughing up mucus. CXR ordered. Referred to pulmonology. Strep test taken. Allergic rhinitis 05/14/2005 Overview (05/07/2020): Has seasonal allergies, uses Zyrtec PRN. Nevus, congenital 1997 Overview (05/07/2020): 05/07/2020: no changes per patient. Resolved Problems Problem Noted Date Diagnosed Date Resolved Date Constipation 08/29/2019 05/07/2020 Overview (08/29/2019): August 26, 2019: Seen at [facility] for ongoing abdominal pain and diagnosed with constipation BMI (body mass index), pedia tric, 85% to less than 95% for age 0608/05/2014 08/28/2015 Overview (08/05/2014): Did discuss healthier eating, limited electronics and regular physical exercise. Learning difficulty 10/14/2005 05/30/19 13 Overview (07/13/2014): In resource help for language arts and reading. In [employer] for math. In speech therapy as well. This continues as of Mar 2008. As of academic year 9595-5646, no longer with resource help. Hernia, umbilical 10/02/1998 12/29/2000 Immunizations Immunization Administration Dates Next Due Adenovirus 4 And 6, Live 09/09/2016 COVID-19, mRNA (Moderna Pre Fall 2022) Monovalent, 100 mcg/0.5 ml or 50 mcg/0.25 ml dose 02/24/2021 COVID-19, mRNA (Pfizer Pre F all 2022) Monovalent, 30 mcg/0.3 ml 05/08/2020,04/17/2020 DTaP 02/01/2002, 0,07/03/1998,05/07,03/09/1998 Fc State Fluarix Quad, Prsrv Fr, 3yrs &> 12/09/2015 HIB (PRP-T) 04/13/1999, 9,05/07/1998,03/09 HPV4 (Gardasil 4) 12/25/2012,05/29/2012,05/11/19 12 Hep A (pedi) 05/29/2012,05/11/2011 Hep B (adult) 04/15/2017 Hep B (pedi) 10/13/2016,09/09/2016 Hep B - 10/02/1998,01/28/1998,1997 IPV 09/09/2016, 2,07/20/1999,05/07,03/09/1998 Influenza (SEASONAL) - 01/11/2012,01/27/2009, Influenza,injectable,quad,Prsrv Fr 12/18,12/19/2021,12/20/2020,02/21,02/23/2019 Influenza,injectable,quad,preservative 1 02/28/2014,12/25/2012,12/08/2010,12/03 Influenza,live,intranasal,quad 11/13/2013 Influenza,seasonal,trivalent ,preservat fabricio (FLUZONE MDV) 01/22/2016 MMR 02/20/2002,04/13/1999 Meningococcal ACWY (Menactra) 09/09/2016, 015,03/18/2009 PCV-7 08/10/2000 State H1N1 Vaccine,injection 01/15/2009 Tdap 09/09/2016 Tdap - 03/18/2009 Varicella 03/30/2022, 7,09/09/2016,03/18,01/05/1999 influenza,seasonal,trivalent ,PF (Fluzone, Fluarix, Flulaval) 01/13/2018,12/27/2016 Family History Medical History Relation Name Comments Allergies (med/food/envrnmt) Brother 1 Neel seasonal Allergies (med/food/envrnmt) Brother 2 Hammad seasonal Other Brother 2 Hammad Attention defic it disorder borderline/Learning Disability slow processing Allergies (med/food/envrnmt) Maternal grandfather Other Maternal grandfather Cardiac valve replacement As an elderly man Allergies (med/food/envrnmt) Maternal grandmother Cancer - Breast Maternal grandmother Lipid/Cholesterol Abnormality Maternal grandmother Allergies (med/food/envrnmt) Mother Cancer (?Type) Paternal grandmother Adeno sarcoma: at age 71 No Known or Significant Medical History Sister Relation Name Status Comments Brother 1 Neel Brother 2 Hammad Maternal grandfather Alive Maternal grandmother Alive Mother Paternal grandfather Paternal grandmother (Age 71) ad enosarcoma Sister Social History Tobacco Use Types Packs/Day Years Used Date Smoking Tobacco: Never Smokeless Tobacco: Former Tobacco Cessation:Counseling Given: Not Answered Comments:nicotine salt packets. 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 file Not on file Not on file Last Filed Vital Signs Vital Sign Reading Time Taken Comments Blood Pressure 123/71 10/17/2023 12:55 PM EDT Pulse 69 10/17/2023 12:55 PM EDT Temperature 36.8 C (98.2 F) 09/16/2022 12:16 PM EDT Respiratory Rate 16 09/16/2022 12:16 PM EDT Oxygen Saturation 99% 09/19/2022 3:52 PM EDT Inhaled Oxygen Concentration - - Weight 82.6 kg (182 lb) 10/17/2023 12:55 PM EDT Height 177.8 cm (5' 10 ) 09/21/2022 7:33 AM EDT Body Mass Index 26.11 09/21/2022 7:33 AM EDT Plan of Treatment Health Maintenance Due Date Last Done Comments Hepatitis C Screening 1997 COVID-19 Vaccine ( season) 2024 02/24/2021, 05/08/2020, 04/17/2020 Influenza (#1) 2024 12/18/2022, 110 07/2021, 12/20/2020, Additional history exists DTaP/Tdap/Td (8 - Td or Tdap) 09/09/2026 09/09/2016, 03/18/2009, 02/01/2002, Additional history exists Zoster (Shingrix) (1 of 2) 01/01/204803/30, 10/13/2016, 09/09/2016, Additional history exists Hib Completed 04/13/1999, 06/14, 05/07/1998, Additional history exists Pneumococcal Aged Out 08/10/2000 No longer eligi ble based on patient's age to complete this topic Hep A Completed 05/29/2012, 05/11/2011 Hearing Discontinued 12/13/2012, 11/15, 03/19/2008 HPV Vaccine Completed 12/25/2012, 05/14, 05/11/2011 Meningococcal ACWY Completed 09/09/2016, 0 08/05/2014, 03/18/2009 Hep B Completed 04/15/2017, 09/15, 09/09/2016, Additional history exists Physical Discontinued 05/07/2020, 01/14, 08/28/2015, Additional history exists LDL Cholesterol Discontinued 05/28/2020 Chest Imaging Discontinued 12/20/2021 EKG Discontinued 09/20/2022, 08/2022, 09/16/2022 Procedures * Due to [place] state law, this organization might not be sharing negative HIV tests. Procedure Name Priority Date/Time Associated Diagnosis Comments CARDIOVASCULAR STRESS TEST W/TREADMILL, BICYCLE, AND/OR PHARMACOLOGICAL STRESS; W/ SUPERV/INTERP Routine 09/20/2022 2:09 PM EDT Nonspecific chest pain XRAY CHEST, 2 VIEWS, PA & LATERAL (DX: COUGH R05.9/ 786.2) FC Routine 12/20/2021 1:32 PM EST LIPID PANEL WITH REFLEX TO DIRECT LDL Routine 05/28/2020 12:10 PM EDT Lipid screening TYMPANOMETRY Routine 12/13/2012 from Last 3 Months or Most Recently Relevant to Health Maintenance Results * Due to [place] state law, this organization might not be sharing negative HIV tests. * CARDIOVASCULAR STRESS TEST W/TREADMILL, BICYCLE, AND/OR PHARMACOLOGICAL STRESS; W/ SUPERV/INTERP FOR CARDIOLOGY DEPT USE ONLY (09/20/2022 2:09 PM EDT) ETT BASELINE HR 61 beats/min ETT BASELINE SYSTOLIC BP 118 mmHg ETT BASELINE DIASTOLIC BP 70 mmHg ETT EXERCISE TIME MINUTES 14 minutes ETT EXERCISE TIME SECONDS 0 secs ETT METS 17.2 METS ETT PEAK HR 200 beats/min ETT % MAXIMAL PEAK HR 102 % ETT PEAK SYSTOLIC BP 170 mmHg ETT PEAK DIASTOLIC BP [address]UTION OF ST SEGMENTS ETT RESOLUTION OF SYMPTOMS ETT PERSANTINE DOSE ETT LEXISCAN DOSE Impressions Henrry Trammell DO - 09/20/2022 2:09 PM EDT IV. Impression: Above average aerobic capacity for age. Normal heart rate response to exercise. Normal BP response to exercise. There is no symptomatic or electrocardiographic evidence of ischemia at high workload. Patel Treadmill Score: +14 - Low Risk Interpreted and electronically signed: Henrry Trammell DO Dated: 09/25/2022 Narrative Henrry Trammell DO - 09/20/2022 2:09 PM EDT I. Patient Overview Referring Physician: Eloina Kyle NP Interpreting Automatic Cigar Wrapper Tender: Dr. Henrry Trammell Performing Provider: Mel Daniel NP Type of Stress Test: Exercise Treadmill with Eber Protocol Indication for Test: dizziness Baseline ECG: Normal Sinus Rhythm Patient has been assessed by PUBLIC HEALTH MICROBIOLOGIST and is appropriate to proceed with testing and has consented to same- Yes. II. Exercise Test Data Reason Test Terminated:patient fatigue ECG Response: No ECG changes Symptoms:None Arrhythmias: rare PVC III. Disposition: Patient was discharged in stable condition. us Maria G Zuniga MD CARDIOVASCULAR-WITH INBSKT RTG F inal Result * XRAY CHEST, 2 VIEWS, PA & LATERAL (DX: COUGH R05/ 786.2) FC (12/20/2021 1:32 PM EST) Anatomical Region Laterality Modality CHEST Radiographic Milena ging 12/20/2021 3:10 PM EST Narrative 12/21/2021 5:16 AM EST CONTRAST: 2 view Chest Xray COMPARISON: None FINDINGS: Heart and mediastinum are within normal limits. Lungs clear. No acute bony findings. IMPRESSION: 1. No acute chest disease. ADDENDUM: Agree with preliminary report. Procedure Note Umesh Bonilla MD - 12/21/2021 CONTRAST: 2 view Chest Xray COMPARISON: None FINDINGS: Heart and mediastinum are within normal limits. Lungs clear. No acutebony findings. IMPRESSION: 1. No acute chest disease. ADDENDUM: Agree with preliminary report. Eloina Kyle PUBLIC HEALTH MICROBIOLOGIST IMG XRAY NO CONTRAST ORDERABL ES Final Result * LIPID PANEL WITH REFLEX TO DIRECT [...] LDL-C. Lj MONTESINOS et al. ANGÉLICA. 2013;310(19): 7709-9555 (http://education.[employer].Vanatec/faq/PCM781) CHOL/HDL Ratio 2.9 <5.0 (calc) [facility] Cholesterol Non-HDL 105 <130 mg/dL (calc) [facility] Comment: For patients with diabetes plus 1 major ASCVD risk factor, treating to a non-HDL-C goal of <100 mg/dL (LDL-C of <70 mg/dL) is considered a therapeutic option. 05/28/2020 12:1 0 PM EDT 05/29/2020 12:58 AM EDT Narrative Resulting Agency Comment [id number] Eloina Kyle PUBLIC HEALTH MICROBIOLOGIST LABORATORY Final Result [facility] [address] [place] [address] * TYMPANOMETRY (12/13/2012) ATTACHED DOCUMENT 12/13/2012 12:00 AM EDT 12/13/2012 12/13/2012 Narrative Transcriptions Vanesa Villegas MD - 08/08/2014 12:00 AM EDT Vanesa Villegas MD PROCEDURES Final Result from Last 3 Months or Most Recently Relevant to Health Maintenance Insurance [employer] FEE FOR SERVICE PPO Care Teams Division Sales Manager Relationship Specialty Start Date End Date Agus Murdock MD [address] [place] [id number] PCP - General Family Medicine 09/26/23
== END 2024-12-18 13:20 | disposition home or self-care (01) ==
LOC: HO.HMCFMS 12:59
PROVIDERS: Visit Provider Student in an Organized Health Care Education/Training Program
DX: R74.8 Abnormal levels of other serum enzymes (principal); E78.5 Hyperlipidemia, unspecified; K71.9 Toxic liver disease, unspecified

== ENCOUNTER → 2024-12-18 12:58 | Outpatient (BNVA) | payer OTHER, SELFPAY | PROVIDERS: Visit Provider Student in an Organized Health Care Education/Training Program | DX: R74.8 Abnormal levels of other serum enzymes (principal); E78.5 Hyperlipidemia, unspecified; K71.9 Toxic liver disease, unspecified; T50.905A Adverse effect of unspecified drugs, medicaments and biological substances, initial encounter | CPT/HCPCS: 99212 ==

== ENCOUNTER 2024-12-19 10:26 | Outpatient (REF) | payer OTHER, SELFPAY ==
--- OUTSIDE RECORDS SUMMARY | 2024-12-19 12:29 | XMS_ITS | Clinical Summary ---
Author Organization [facility] ity Address [address] [place] [address] Care Team Providers Care Delivery Specialist Name Role Phone Unavailable Primary Care Provider [...]
--- OUTSIDE RECORDS SUMMARY | 2024-12-19 12:29 | XMS_ITS | Encounter Summary ---
Author Organization [facility] Address [address] [place] [address] Care Team Providers Care Card Reader Name Role Phone Eloina Kyle NP Primary Care Provider Agus Christensen MD Primary Care Provider [phone] Encounter Details Date Type Department Care Team (Late st Contact Info) Description 08/12/2021 Orders Only [facility] [address] [place] [address] Eloina Kyle NP Social History Tobacco Use Types Packs/Day Years Used Date Smoking Tobacco: Never Smokeless Tobacco: Current Comments:nicotine salt packe ts. 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 Procedure Name Priority Date/Time Associated Diagnosis Comments VENIPUNCTURE Routine 08/12/2021 1:26 PM EDT [place] exposure CBC INCLUDES DIFFERENTIAL AND PLATELET COUNT [...] in this encounter Results * Due to [place] state law, this organization might not be sharing negative HIV tests. * TSH, 3RD GENERATION (08/12/2021 1:26 PM EDT) TSH (Thyrotropin) 0.71 0.40 - 4.50 uIU/ml [facility] 08/12/2021 1:26 PM EDT 08/12/2021 1:26 PM EDT Narrative [facility] - 08/12/2021 2:50 PM EDT Patient's primary care provider is: N/A Testing performed at: [facility], [address] [place] [address], [id number], Vice Chancellor: Winston Cordova MD Eloina Kyle NP LABORATORY Final Result [address] [address] DIRECTOR Winston Cordova MD * IRON PROFILE (IRON/TIBC), SERUM (08/12/2021 1:26 PM EDT) Iron 92 65 - 175 ug/dL [facility] Iron Binding Capacity, Unsaturated 307.00 250.00 - 425.00 [facility] Iron saturation 29.97 20.00 - 50.00 % [facility] 08/12/2021 1:26 PM EDT 08/12/2021 1:26 PM EDT Narrative [facility] - 08/12/2021 2:50 PM EDT Patient's primary care provider is: N/A Testing performed at: [facility], [address] [place] [address], [id number], Vice Chancellor: Winston Cordova MD Eloina Kyle NP LABORATORY Final Result Performing Organization Address City/State/[facility] Co de Phone Number [address] [address] DIRECTOR Winston Cordova MD * CBC INCLUDES [...] PM EDT 08/12/2021 1:26 PM EDT Narrative [facility] - 08/12/2021 2:15 PM EDT Patient's primary care provider is: N/A Testing performed at: [facility], [address] [place] [address], [id number], Vice Chancellor: Winston Cordova MD Eloina Kyle NP LAB SAME DAY RESULT Final Res ult [address] [address] DIRECTOR Winston Cordova MD * FERRITIN (08/12/2021 1:26 PM EDT) Ferritin 143 22 - 322 ng/mL [facility] 08/12/2021 1:26 PM EDT 08/12/2021 1:26 PM EDT Narrative [facility] - 08/12/2021 2:50 PM EDT Patient's primary care provider is: N/A Testing performed at: [facility], [address] [place] [address], [id number], Vice Chancellor: Winston Cordova MD Eloina Kyle NP LABORATORY Final Result Performing Organization Address [facility]/ZIP Co de Phone Number [address] [address] DIRECTOR Winston Cordova MD * COMPREHENSIVE METABOLIC [...] GROUP Comment:If the patient is Af rican Slovak, please multiply result by 1.210 08/12/2021 1:26 PM EDT 08/12/2021 1:26 PM EDT Narrative [facility] - 08/12/2021 2:50 PM EDT Patient's primary care provider is: N/A Testing performed at: [facility], [address] [place] [address], [id number], Vice Chancellor: Winston Cordova MD Eloina Kyle DESKTOP SUPPORT ENGINEER LABORATORY Final Result Performing Organization Address [facility]/ZIP Co de Phone Number [address] [address] DIRECTOR Winston Cordova MD * MONONUCLEOSIS SCREEN (HETEROPHILE) (08/12/2021 1:26 PM EDT) MONOTEST Negative Negative [facility] 08/12/2021 1:26 PM EDT 08/12/2021 1:26 PM EDT Narrative [facility] - 08/12/2021 2:32 PM EDT Patient's primary care provider is: N/A Testing performed at: [facility], [address] [place] [address], [id number], Vice Chancellor: Winston Cordova MD Eloina Kyle DESKTOP SUPPORT ENGINEER LAB SAME DAY RESULT Final Res ult [address] [address] DIRECTOR Winston Cordova MD documented in this encounter Visit Diagnoses Diagnosis [place] exposure Contact with or exposure to other viral diseases Fatigue, unspecified type documented in this encounter Care Teams Card Reader Relationship Specialty Start Date End Date Eloina Kyle NP PCP - General Internal Medicine 03/25/20 06/18/23 Agus Murdock MD [address] [place] [address] PCP - General Family Medicine 09/26/23 documented as of this encounter
--- OUTSIDE RECORDS SUMMARY | 2024-12-19 12:29 | XMS_ITS | Encounter Summary ---
Author Organization [facility] Address [address] [place] [address] Care Team Providers Care Helicopter Technician Name Role Phone Eloina Kyle NP Primary Care Provider Agus Christensen MD Primary Care Provider [phone] [phone] Reason for Visit * Reason Comments Labs/orders Encounter Details Date Type Department Care Team (Late st Contact Info) Description 08/27/2021 Telephone [facility] Night Triage [address] [place] [address] Eloina Kyle NP Labs/orders Social History Tobacco Use Types Packs/Day Years Used Date Smoking Tobacco: Never Smokeless Tobacco: Current Comments:nicotine salt packe ts. 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
--- OUTSIDE RECORDS SUMMARY | 2024-12-19 12:29 | XMS_ITS | Encounter Summary ---
Author Organization [facility] Address [address] [place] [address] Care Team Providers Care Dope Maintenance Worker Name Role Phone Eloina Kyle NP Primary Care Provider Agus Christensen MD Primary Care Provider [phone] [phone] Encounter Details Date Type Department Care Team (Late st Contact Info) Description 05/28/2020 Orders Only [facility] [place] [facility] [address] [place] [address] Eloina Kyle NP Social History Tobacco Use Types Packs/Day Years Used Date Smoking Tobacco: Never Smokeless Tobacco: Never Alcohol Use Standard Drinks/Week Comments Not Asked 0 (1 standard drink = 0.6 oz pur e alcohol) PHQ-2 Answer Date [facility]ed [facility] SEVERITY SCORE (Range 0-6) 0 05/06/2020 Sex and Gender Information Value Date Recorded Sex Assigned at Male 05/06/2020 3:49 PM EDT Legal Sex Male 8:44 PM EST Gender Identity Male 05/06/2020 3:49 PM EDT Sexual Orientation Straight 05/06/2020 3: 49 PM EDT Occupation Industry Job Start Date Job End Date 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 Procedure Name Priority Date/Time Associated Diagnosis Comments VENIPUNCTURE Routine 05/28/2020 12:10 PM EDT Screening for diabetes mellitus LIPID PANEL WITH REFLEX TO DIRECT LDL Routine 05/28/2020 12:10 PM EDT Lipid screening documented in this encounter Results * Due to [place] [employer] law, this organization might not be sharing [...] LDL-C. Lj MONTESINOS et al. ANGÉLICA. 2013;310(19): 1953-6512 (http://education.Drillinginfo.GoAlbert/faq/UQS999) CHOL/HDL Ratio 2.9 <5.0 (calc) [facility] Cholesterol Non-HDL 105 <130 mg/dL (calc) [facility] Comment: For patients with diabetes plus 1 major ASCVD risk factor, treating to a non-HDL-C goal of <100 mg/dL (LDL-C of <70 mg/dL) is considered a therapeutic option. 05/28/2020 12:1 0 PM EDT 05/29/2020 12:58 AM EDT Narrative Resulting Agency Comment [id number] Eloina Kyle ENVIRONMENTAL SCIENTIST LABORATORY Final Result Performing Organization Address City/[facility] Co de Phone Number [facility] [address] [place] [address] * HEMOGLOBIN A1C (05/28/2020 12:10 PM EDT) [...] diagnosis of diabetes in children. According to [place] Diabetes Association (ADA) guidelines, hemoglobin A1c <7.0% represents optimal control in non- diabetic patients. Different metrics may apply to specific patient populations. Standards of Medical Care in Diabetes(ADA). Estimated Average Glucose 90 mg/dL (calc) [facility] 05/28/2020 12:1 0 PM EDT 05/29/2020 12:58 AM EDT Narrative Resulting Agency Comment [id number] Eloina Kyle ENVIRONMENTAL SCIENTIST LABORATORY Final Result Performing Organization Address [facility] Co de Phone Number [facility] [address] [place] [address] documented in this encounter Visit Diagnoses Diagnosis Screening for diabetes mellitus Lipid screening Screening for lipoid disorders documented in this encounter Care Teams Dope Maintenance Worker Relationship Specialty Start Date End Date Eloina Kyle NP PCP - General Internal Medicine 03/25/20 06/18/23 Agus Murdock MD [address] [place] [address] PCP - General Family Medicine 09/26/23 documented as of this encounter
--- OUTSIDE RECORDS SUMMARY | 2024-12-19 12:29 | XMS_ITS | Encounter Summary ---
Author Organization [facility] Address [address] [place] [address] Care Team Providers Care Ice Cream Machine Operator Name Role Phone Eloina Kyle NP Primary Care Provider Agus Christensen MD Primary Care Provider [phone] [phone] Encounter Details Date Type Department Care Team (Late st Contact Info) Description 04/06/2020 Orders Only [facility] [address] [place] [address] Eloina Kyle NP Social History Tobacco Use [...] of this encounter Results * Due to [place] state law, this organization might not be [...] diagnosis of diabetes in children. According to [place] Diabetes Association (ADA) guidelines, hemoglobin A1c <7.0% represents optimal control in non- diabetic patients. Different metrics may apply to specific patient populations. Standards of Medical Care in Diabetes(ADA). Estimated Average Glucose 90 mg/dL (calc) [facility] 05/28/2020 12:1 0 PM EDT 05/29/2020 12:58 AM EDT Narrative Resulting Agency Comment [id number] us Eloina Kyle NP LABORATORY Final Result [facility] [address] [place] [address] documented in this encounter Visit Diagnoses Diagnosis Screening for diabetes mellitus documented in this encounter Care Teams Ice Cream Machine Operator Relationship Specialty Start Date End Date Eloina Kyle NP PCP - General Internal Medicine 03/25/20 06/18/23 Agus Murdock MD [address] [place] [address] PCP - General Family Medicine 09/26/23 documented as of this encounter
--- OUTSIDE RECORDS SUMMARY | 2024-12-19 12:30 | XMS_ITS | Encounter Summary ---
Author Organization [facility] Address [address] [place] [address] Care Team Providers Care Collections Curator Name Role Phone Agus Murdock MD Primary Care Provider [phone] [phone] Encounter Details Date Type Department Care Team (Late st Contact Info) Description 10/17/2023 Orders Only [facility] [address] [place] [phone] Agus Murdock MD [address] [place] [address] Social History Tobacco Use Types Packs/Day Years Used Date Smoking Tobacco: Never Smokeless Tobacco: Former Comments:nicotine salt packe ts. 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 Procedure Name Priority Date/Time Associated Diagnosis Comments HELICOBACTER PYLORI UREA BREATH TEST (UBIT-(R)) Routine 10/17/2023 1:33 PM EDT Acid indigestion documented in this encounter Results * Due to [place] [employer] law, this organization might not be sharing [...] 11:33 PM EDT Narrative Resulting Agency Comment [id number] us Agus Murdock MD LABORATORY Final Res ult Performing Organization Address City/State/[facility] Co de Phone Number [facility] [address] [place] [address] documented in this encounter Visit Diagnoses Diagnosis Acid indigestion Dyspepsia and other specified disorders of function of stomach documented in this encounter Care Teams Collections Curator Relationship Specialty Start Date End Date Agus Murdock MD [address] [place] [address] PCP - General Family Medicine 09/26/23 documented as of this encounter
--- OUTSIDE RECORDS SUMMARY | 2024-12-19 12:30 | XMS_ITS | Clinical Summary ---
Author Organization [facility] Address [address] [place] [address] Care Team Providers Care Medical Receptionist Biller Name Role Phone Agus Murdock MD Primary Care Provider [phone] [phone] Allergies No known active allergies Medications Pantoprazole [...] Overview (08/29/2019): August 26, 2019: Seen at [facility] for ongoing abdominal pain and diagnosed [...] of Mar 2008. As of academic year 4837-2551, no longer with resource help. 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 Henrry Trammell Performing Provider: Mel Daniel NP Type of Stress Test: Exercise Treadmill with Eber Protocol Indication for Test: dizziness Baseline ECG: Normal Sinus Rhythm Patient has been assessed by LOOP PULLER and is appropriate to proceed with testing [...] ADDENDUM: Agree with preliminary report. Eloina Kyle LOOP PULLER IMG XRAY NO CONTRAST ORDERABL ES Final [...] LDL-C. Lj MONTESINOS et al. ANGÉLICA. 2013;310(19): 5375-7368 (http://education.Sunrise.[employer]/faq/QJU774) CHOL/HDL Ratio 2.9 <5.0 (calc) [facility] Cholesterol Non-HDL 105 <130 mg/dL (calc) [facility] Comment: For patients with diabetes plus 1 major ASCVD risk factor, treating to a non-HDL-C goal of <100 mg/dL (LDL-C of <70 mg/dL) is considered a therapeutic option. 05/28/2020 12:1 0 PM EDT 05/29/2020 12:58 AM EDT Narrative Resulting Agency Comment [id number] us Eloina Kyle [facility] LABORATORY Final Result [facility] [address] [place] [address] * TYMPANOMETRY (12/13/2012) ATTACHED DOCUMENT 12/13/2012 12:00 AM EDT 12/13/2012 12/13/2012 Narrative Transcriptions Vanesa Villegas MD - 08/08/2014 12:00 AM EDT Vanesa Villegas MD PROCEDURES Final Result from Last 3 Months or Most Recently Relevant to Health Maintenance Insurance [employer] FEE FOR SERVICE PPO Care Teams Medical Receptionist Biller Relationship Specialty Start Date End Date Agus Murdock MD [address] [place] [address] PCP - General Family Medicine 09/26/23
--- OUTSIDE RECORDS SUMMARY | 2024-12-19 12:30 | XMS_ITS | Encounter Summary ---
Author Organization [facility] Address [address] [place] [address] Care Team Providers Care Mill Worker Name Role Phone Agus Murdock MD Primary Care Provider [phone] [phone] Encounter Details Date Type Department Care Team (Late st Contact Info) Description 11/29/2023 Orders Only [facility] [address] [place] [phone] Agus Murdock MD [address] [place] [address] Social History Tobacco Use Types Packs/Day Years Used Date Smoking Tobacco: Never Smokeless Tobacco: Former Comments:nicotine salt packe ts. 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 Procedure Name Priority Date/Time Associated Diagnosis Comments VITAMIN B12 (CYANOCOBALAMIN), SERUM Routine 11/29/2023 8:24 AM EDT Brain fog VITAMIN D, 25-HYDROXY, TOTAL, IMMUNOASSAY Routine 11/29/2023 8:24 AM EDT Brain fog documented in this encounter Results * Due to [place] [employer] law, this organization might not be sharing negative HIV tests. * VITAMIN B12 (CYANOCOBALAMIN), SERUM (11/29/2023 8:24 AM EDT) Vitamin B12 (Cobalamins) 879 211 - 946 pg/mL [facility] 11/29/2023 8:24 AM EDT 11/29/2023 8:24 AM EDT Narrative [facility] - 11/29/2023 10:38 AM EDT Patient's primary care provider is: N/A Testing performed at: [facility], [address] [place] [address], [id number], Manager Technical Training: Winston Cordova MD Agus Murdock MD LABORATORY Final Res ult [address] [address] DIRECTOR Winston Cordova MD * VITAMIN D, 25-HYDROXY, TOTAL, IMMUNOASSAY (11/29/2023 8:24 AM EDT) VIT D, 25-OH, TOTAL 30 >29 ng/mL [facility] Comment: Vitamin D Status 25-OH Vitamin D: Deficiency: <20 ng/mL Insufficiency: 20-29 ng/mL Optimal: > or = 30 ng/mL 11/29/2023 8:24 AM EDT 11/29/2023 8:24 AM EDT Narrative [facility] - 11/29/2023 10:38 AM EDT Patient's primary care provider is: N/A Testing performed at: [facility], [address] [place] [address], [id number], Manager Technical Training: Winston Cordova MD us Agus Murdock MD LABORATORY Final Res ult [address] [address] DIRECTOR Winston Cordova MD documented in this encounter Visit Diagnoses Diagnosis Brain fog documented in this encounter Care Teams Mill Worker Relationship Specialty Start Date End Date Agus Murdock MD [address] [place] [address] PCP - General Family Medicine 09/26/23 documented as of this encounter
[2024-12-19 13:54] LABS: Iron 120 mcg/dL (45-160); Percent Iron Saturation 46 % (15-50); Total Iron Binding Capacity 260 mcg/dL (228-428); Unsaturated Iron Binding 140 ug/dL
[2024-12-19 14:05] LABS: Ferritin 168 ng/mL (20-250)
[2024-12-19 14:24] LABS: Gamma Glutamyl Transpeptidase 23 U/L (11-51)
[2024-12-20 08:07] LABS: ~Hepatitis A Antibody IgG 9.19 S/CO (0.00-0.99)
[2024-12-25 15:54] LABS: Anti Nuclear Antibody Screen NEGATIVE (NEGATIVE)
== END 2024-12-19 10:27 | disposition home or self-care (01) ==
LOC: HO.HKASLDS 10:26
PROVIDERS: PCP Student in an Organized Health Care Education/Training Program; Visit Provider Student in an Organized Health Care Education/Training Program
DX: Z01.84 Encounter for antibody response examination (principal); Z11.59 Encounter for screening for other viral diseases; R74.8 Abnormal levels of other serum enzymes
CPT/HCPCS: 36415; 82103; 82390; 82728; 82977; 83540; 83615; 86015; 86038; 86308; 86381; 86708

== ENCOUNTER 2025-01-28 08:22 | Outpatient (REF) | payer OTHER, SELFPAY ==
--- NOTE | ~2025-01-28 | US_ITS ---
CLINICAL HISTORY: R74.8 - Abnormal levels of other serum enzymes US abdomen limited Comparison: None provided Findings: The visualized part of pancreatic head, aorta, and inferior vena cava are unremarkable. Remaining pancreas is obscured by bowel gas. The liver is normal in size, right lobe length is 13.7 cm. Normal in echogenicity, no discrete lesion is visualized in the imaged liver. No bile duct dilatation. Common duct 3 mm diameter. Normal gallbladder. Negative sonographic Sandoval sign. Main portal vein shows antegrade flow. Right kidney normal, 11.3 cm in length. No free fluid in the right upper quadrant of the abdomen. Impression: Suboptimal exam due to bowel gas shadowing and body habitus, no apparent sonographic abnormality. This document has been electronically signed by: Lucy Valle MD on 01/28/2025 13:00:21
--- OUTSIDE RECORDS SUMMARY | 2025-01-28 08:41 | XMS_ITS | Encounter Summary ---
Author Organization [facility] Address [address] [place] [address] Care Team Providers Care Banking Management Consulting Manager Name Role Phone Agus Murdock MD Primary Care Provider [phone] [phone] Encounter Details Date Type Department Care Team (Late st Contact Info) Description 11/29/2023 Orders Only [facility] [address] [place] [phone] Agus Murdock MD [address] [place] [address] Social History Tobacco Use Types Packs/Day Years Used Date Smoking Tobacco: Never Smokeless Tobacco: Former Comments:nicotine salt packe ts. 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 Procedure Name Priority Date/Time Associated Diagnosis Comments VITAMIN B12 (CYANOCOBALAMIN), SERUM Routine 11/29/2023 8:24 AM EDT Brain fog VITAMIN D, 25-HYDROXY, TOTAL, IMMUNOASSAY Routine 11/29/2023 8:24 AM EDT Brain fog documented in this encounter Results * Due to [place] [facility] law, this organization might not be sharing negative HIV tests. * VITAMIN B12 (CYANOCOBALAMIN), SERUM (11/29/2023 8:24 AM EDT) Vitamin B12 (Cobalamins) 879 211 - 946 pg/mL [facility] 11/29/2023 8:24 AM EDT 11/29/2023 8:24 AM EDT Narrative [facility] - 11/29/2023 10:38 AM EDT Patient's primary care provider is: N/A Testing performed at: [facility], [address] [place] [address], [id number], Net Developer Architect: Winston Cordova MD Agus Murdock MD LABORATORY Final Res ult [address] [address] DIRECTOR Winston Cordova MD * VITAMIN D, [...] care provider is: N/A Testing performed at: [facility], [address] [place] [address], [id number], Net Developer Architect: Winston Cordova MD us Agus Murdock MD LABORATORY Final Res ult [address] [address] DIRECTOR Winston Cordova MD documented in this encounter Visit Diagnoses Diagnosis Brain fog documented in this encounter Care Teams Banking Management Consulting Manager Relationship Specialty Start Date End Date Agus Murdock MD [address] [place] [address] PCP - General Family Medicine 09/26/23 documented as of this encounter
--- OUTSIDE RECORDS SUMMARY | 2025-01-28 08:41 | XMS_ITS | Encounter Summary ---
Author Organization [facility] Address [address] [place] [address] Care Team Providers Care Cigarette Making Examiner Name Role Phone Agus Murdock MD Primary Care Provider [phone] [phone] Encounter Details Date Type Department Care Team (Late st Contact Info) Description 10/17/2023 Orders Only [facility] [address] [place] [phone] Agus Murdock MD [address] [place] [address] Social History Tobacco Use Types Packs/Day Years Used Date Smoking Tobacco: Never Smokeless Tobacco: Former Comments:nicotine salt packe ts. 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 Procedure Name Priority Date/Time Associated Diagnosis Comments HELICOBACTER PYLORI UREA BREATH TEST (UBIT-(R)) Routine 10/17/2023 1:33 PM EDT Acid indigestion documented in this encounter Results * Due to [place] [employer] law, this organization might not be sharing [...] 11:33 PM EDT Narrative Resulting Agency Comment [id number] us Agus Murdock MD LABORATORY Final Res ult Performing Organization Address City/State/[facility] Co de Phone Number [facility] [address] [place] [address] documented in this encounter Visit Diagnoses Diagnosis Acid indigestion Dyspepsia and other specified disorders of function of stomach documented in this encounter Care Teams Cigarette Making Examiner Relationship Specialty Start Date End Date Agus Murdock MD [address] [place] [address] PCP - General Family Medicine 09/26/23 documented as of this encounter
--- OUTSIDE RECORDS SUMMARY | 2025-01-28 08:41 | XMS_ITS | Encounter Summary ---
Author Organization [facility] Address [address] [place] [address] Care Team Providers Care Car Whacker Name Role Phone Eloina Kyle NP Primary Care Provider Agus Christensen MD Primary Care Provider [phone] [phone] Encounter Details Date Type Department Care Team (Late st Contact Info) Description 04/06/2020 Orders Only [facility] [address] [place] [address] Eloina Kyle NP Social History Tobacco Use [...] of this encounter Results * Due to [place] state law, [...] diagnosis of diabetes in children. According to [place] Diabetes Association (ADA) guidelines, hemoglobin A1c <7.0% represents optimal control in non- diabetic patients. Different metrics may apply to specific patient populations. Standards of Medical Care in Diabetes(ADA). Estimated Average Glucose 90 mg/dL (calc) [facility] 05/28/2020 12:1 0 PM EDT 05/29/2020 12:58 AM EDT Narrative Resulting Agency Comment [id number] us Eloina Kyle NP LABORATORY Final Result [facility] [address] [place] [address] documented in this encounter Visit Diagnoses Diagnosis Screening for diabetes mellitus documented in this encounter Care Teams Car Whacker Relationship Specialty Start Date End Date Eloina Kyle NP PCP - General Internal Medicine 03/25/20 06/18/23 Agus Murdock MD [address] [place] [address] PCP - General Family Medicine 09/26/23 documented as of this encounter
--- OUTSIDE RECORDS SUMMARY | 2025-01-28 08:41 | XMS_ITS | Clinical Summary ---
Author Organization [facility] ity Address [address] [place] [address] Care Team Providers Care School Occupational Therapist Name Role Phone Unavailable Primary Care Provider Unavailabl e Social History Tobacco Use Types Packs/Day Years Used Date Smoking Tobacco: Never Assessed Sex and Gender Information Value Date Recorded Sex Assigned at Not on file Legal Sex Male 12:41 PM EST Gender Identity Not on file Sexual Orientation Not on file Plan of Treatment Health Maintenance Due Date Last Done Comments DTaP,Tdap,and Td Vaccines (1 - Tdap) 2016 Hepatitis B Vaccines (1 of 3 - 19+ 3-dose series) 2016 Depression Screening 02/14/2024 COVID-19 Vaccine (1 - 2024-2 6 season) 2024 Influenza Vaccine (#1) 2024 HPV Vaccines (1 - 3-dose SCD M series) 2024 RSV Immunization Adult Patie nts (1 [...]
--- OUTSIDE RECORDS SUMMARY | 2025-01-28 08:41 | XMS_ITS | Encounter Summary ---
Author Organization [facility] Address [address] [place] [address] Care Team Providers Care Family Psychologist Name Role Phone Eloina Kyle NP Primary Care Provider Agus Christensen MD Primary Care Provider [phone] [phone] Encounter Details Date Type Department Care Team (Late st Contact Info) Description 05/28/2020 Orders Only [facility] [address] [place] [address] Eloina Kyle NP Social History Tobacco Use Types Packs/Day Years Used Date Smoking Tobacco: Never Smokeless Tobacco: Never Alcohol Use Standard Drinks/Week Comments Not Asked 0 (1 standard drink = 0.6 oz pur e alcohol) PHQ-2 Answer Date Recorded [facility] PHQ-2 SEVERITY SCORE (Range 0-6) 0 05/06/2020 Sex and Gender Information Value Date Recorded Sex Assigned at Male 05/06/2020 3:49 PM EDT Legal Sex Male 8:44 PM EST Gender Identity Male 05/06/2020 3:49 PM EDT Sexual Orientation Straight 05/06/2020 3: 49 PM EDT Occupation Industry Job Start Date Job End Date 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 Procedure Name Priority Date/Time Associated Diagnosis Comments VENIPUNCTURE Routine 05/28/2020 12:10 PM EDT Screening for diabetes mellitus LIPID PANEL WITH REFLEX TO DIRECT LDL Routine 05/28/2020 12:10 PM EDT Lipid screening documented in this encounter Results * Due to [place] Portal [place] law, this organization might not be sharing [...] LDL-C. Lj MONTESINOS et al. ANGÉLICA. 2013;310(19): 1706-0612 (http://education.Taskdoer.Peas-[employer]/faq/WGN766) CHOL/HDL Ratio 2.9 <5.0 (calc) [facility] Cholesterol Non-HDL 105 <130 mg/dL (calc) [facility] Comment: For patients with diabetes plus 1 major ASCVD risk factor, treating to a non-HDL-C goal of <100 mg/dL (LDL-C of <70 mg/dL) is considered a therapeutic option. 05/28/2020 12:1 0 PM EDT 05/29/2020 12:58 AM EDT Narrative Resulting Agency Comment [id number] Eloina Kyle PRODUCE SERVICE TEAM MEMBER LABORATORY Final Result Performing Organization Address City/[facility] Co de Phone Number [facility] [address] [place] [address] * HEMOGLOBIN A1C (05/28/2020 12:10 PM EDT) [...] diagnosis of diabetes in children. According to [place] Diabetes Association (ADA) guidelines, hemoglobin A1c <7.0% represents optimal control in non- diabetic patients. Different metrics may apply to specific patient populations. Standards of Medical Care in Diabetes(ADA). Estimated Average Glucose 90 mg/dL (calc) [facility] 05/28/2020 12:1 0 PM EDT 05/29/2020 12:58 AM EDT Narrative Resulting Agency Comment [id number] Eloina Kyle PRODUCE SERVICE TEAM MEMBER LABORATORY Final Result Performing Organization Address [facility] Co de Phone Number [facility] [address] [place] [address] documented in this encounter Visit Diagnoses Diagnosis Screening for diabetes mellitus Lipid screening Screening for lipoid disorders documented in this encounter Care Teams Family Psychologist Relationship Specialty Start Date End Date Eloina Kyle NP PCP - General Internal Medicine 03/25/20 06/18/23 Agus Murdock MD [address] [place] [address] PCP - General Family Medicine 09/26/23 documented as of this encounter
--- OUTSIDE RECORDS SUMMARY | 2025-01-28 08:41 | XMS_ITS | Encounter Summary ---
Author Organization [facility] Address [address] [place] [address] Care Team Providers Care Loss Prevention Representative Name Role Phone Eloina Kyle NP Primary Care Provider Agus Christensen MD Primary Care Provider [phone] [phone] Reason for Visit * Reason Comments Labs/orders Encounter Details Date Type Department Care Team (Late st Contact Info) Description 08/27/2021 Telephone [facility] Night Triage [address] [place] [address] Eloina Kyle NP Labs/orders Social History Tobacco Use Types Packs/Day Years Used Date Smoking Tobacco: Never Smokeless Tobacco: Current Comments:nicotine salt packe ts. 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
--- OUTSIDE RECORDS SUMMARY | 2025-01-28 08:41 | XMS_ITS | Clinical Summary ---
Author Organization [facility] Address [address] [place] [address] Care Team Providers Care Mechanical Maintenance Name Role Phone Agus Murdock MD Primary Care Provider [phone] [phone] Allergies No known active allergies Medications Pantoprazole [...] Overview (08/29/2019): August 26, 2019: Seen at [facility] for ongoing abdominal pain and diagnosed [...] of Mar 2008. As of academic year [id number], no longer with resource help. 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 Henrry Trammell Performing Provider: Mel Daniel NP Type of Stress Test: Exercise Treadmill with Eber Protocol Indication for Test: dizziness Baseline ECG: Normal Sinus Rhythm Patient has been assessed by REPLANTING MACHINE OPERATOR and is appropriate to proceed with testing [...] ADDENDUM: Agree with preliminary report. Eloina Kyle REPLANTING MACHINE OPERATOR IMG XRAY NO CONTRAST ORDERABL ES Final [...] LDL-C. Lj MONTESINOS et al. ANGÉLICA. 2013;310(19): 2384-4243 (http://education.Cliqset.[employer]./faq/TUP396) CHOL/HDL Ratio 2.9 <5.0 (calc) [facility] Cholesterol Non-HDL 105 <130 mg/dL (calc) [facility] Comment: For patients with diabetes plus 1 major ASCVD risk factor, treating to a non-HDL-C goal of <100 mg/dL (LDL-C of <70 mg/dL) is considered a therapeutic option. 05/28/2020 12:1 0 PM EDT 05/29/2020 12:58 AM EDT Narrative Resulting Agency Comment [id number] us Eloina Kyle REPLANTING MACHINE OPERATOR LABORATORY Final Result [facility] [address] [place] [address] * TYMPANOMETRY (12/13/2012) ATTACHED DOCUMENT 12/13/2012 12:00 AM EDT 12/13/2012 12/13/2012 Narrative Transcriptions Vanesa Villegas MD - 08/08/2014 12:00 AM EDT Vanesa Villegas MD PROCEDURES Final Result from Last 3 Months or Most Recently Relevant to Health Maintenance Insurance BCBS FEE FOR SERVICE PPO Care Teams Mechanical Maintenance Relationship Specialty Start Date End Date Agus Murdock MD [address] [place] [address] PCP - General Family Medicine 09/26/23
--- OUTSIDE RECORDS SUMMARY | 2025-01-28 08:41 | XMS_ITS | Encounter Summary ---
Author Organization [facility] Address [address] [place] [address] Care Team Providers Care Crm Technical Lead Name Role Phone Eloina Kyle NP Primary Care Provider Agus Christensen MD Primary Care Provider [phone] [phone] Encounter Details Date Type Department Care Team (Late st Contact Info) Description 08/12/2021 Orders Only [facility] [address] [place] [address] Eloina Kyle NP Social History Tobacco Use Types Packs/Day Years Used Date Smoking Tobacco: Never Smokeless Tobacco: Current Comments:nicotine salt packe ts. 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 Procedure Name Priority Date/Time Associated Diagnosis Comments VENIPUNCTURE Routine 08/12/2021 1:26 PM EDT [place] exposure CBC INCLUDES DIFFERENTIAL AND PLATELET COUNT [...] in this encounter Results * Due to [place] state law, this organization might not be sharing negative HIV tests. * TSH, 3RD GENERATION (08/12/2021 1:26 PM EDT) TSH (Thyrotropin) 0.71 0.40 - 4.50 uIU/ml [facility] 08/12/2021 1:26 PM EDT 08/12/2021 1:26 PM EDT Narrative [facility] - 08/12/2021 2:50 PM EDT Patient's primary care provider is: N/A Testing performed at: [facility], [address] [place] [address], [id number], Collar Pointer: Winston Cordova MD Eloina Kyle NP LABORATORY Final Result [address] [address] DIRECTOR Winston Cordova MD * IRON PROFILE (IRON/TIBC), SERUM (08/12/2021 1:26 PM EDT) Iron 92 65 - 175 ug/dL [facility] Iron Binding Capacity, Unsaturated 307.00 250.00 - 425.00 [facility] Iron saturation 29.97 20.00 - 50.00 % [facility] 08/12/2021 1:26 PM EDT 08/12/2021 1:26 PM EDT Narrative [facility] - 08/12/2021 2:50 PM EDT Patient's primary care provider is: N/A Testing performed at: [facility], [address] [place] [address], [address], Collar Pointer: Winston Cordova MD Eloina Kyle NP LABORATORY Final Result Performing Organization Address City/State/[facility] Co de Phone Number [address] [address] DIRECTOR Winston Cordova MD * CBC INCLUDES [...] PM EDT 08/12/2021 1:26 PM EDT Narrative [facility] - 08/12/2021 2:15 PM EDT Patient's primary care provider is: N/A Testing performed at: [facility], [address] [place] [address], [address], Collar Pointer: Winston Cordova MD Eloina Kyle NP LAB SAME DAY RESULT Final Res ult [address] [address] DIRECTOR Winston Cordova MD * FERRITIN (08/12/2021 1:26 PM EDT) Ferritin 143 22 - 322 ng/mL [facility] 08/12/2021 1:26 PM EDT 08/12/2021 1:26 PM EDT Narrative [facility] - 08/12/2021 2:50 PM EDT Patient's primary care provider is: N/A Testing performed at: [facility], [address] [place] [address], [address], Collar Pointer: Winsotn Cordova MD Eloina Kyle NP LABORATORY Final Result Performing Organization Address [facility]/ZIP Co de Phone Number [address] [address] DIRECTOR Winston Cordova MD * COMPREHENSIVE METABOLIC [...] GROUP Comment:If the patient is Af rican [place]ammar[place], please multiply result by 1.210 08/12/2021 1:26 PM EDT 08/12/2021 1:26 PM EDT Narrative [facility] - 08/12/2021 2:50 PM EDT Patient's primary care provider is: N/A Testing performed at: [facility], [address] [place] [address], [address], Collar Pointer: Winston Cordova MD Eloina Kyle SENIOR MEDICAL TECHNOLOGIST LABORATORY Final Result Performing Organization Address [facility]/ZIP Co de Phone Number [address] [address] DIRECTOR Winston Cordova MD * MONONUCLEOSIS SCREEN (HETEROPHILE) (08/12/2021 1:26 PM EDT) MONOTEST Negative Negative [facility] 08/12/2021 1:26 PM EDT 08/12/2021 1:26 PM EDT Narrative [facility] - 08/12/2021 2:32 PM EDT Patient's primary care provider is: N/A Testing performed at: [facility], [address] [place] [address], [address], Collar Pointer: Winston Cordova MD Eloina Kyle SENIOR MEDICAL TECHNOLOGIST LAB SAME DAY RESULT Final Res ult [address] [address] DIRECTOR Winston Cordova MD documented in this encounter Visit Diagnoses Diagnosis [place] exposure Contact with or exposure to other viral diseases Fatigue, unspecified type documented in this encounter Care Teams Crm Technical Lead Relationship Specialty Start Date End Date Eloina Kyle NP PCP - General Internal Medicine 03/25/20 06/18/23 Agus Murdock MD [address] [place] [address] PCP - General Family Medicine 09/26/23 documented as of this encounter
== END 2025-01-28 08:23 | disposition home or self-care (01) ==
LOC: HO.US 08:22
PROVIDERS: PCP Student in an Organized Health Care Education/Training Program; Visit Provider Student in an Organized Health Care Education/Training Program
DX: R74.8 Abnormal levels of other serum enzymes (principal)
CPT/HCPCS: 76705

== ENCOUNTER → 2025-01-28 08:23 | Outpatient (BNV) | payer OTHER, SELFPAY | PROVIDERS: PCP Student in an Organized Health Care Education/Training Program; Visit Provider Radiology Diagnostic Radiology | DX: R74.8 Abnormal levels of other serum enzymes (principal) | CPT/HCPCS: 76705 ==

== ENCOUNTER 2025-02-03 08:45 | Outpatient (REF) | payer OTHER, SELFPAY ==
--- OUTSIDE RECORDS SUMMARY | 2025-02-03 09:10 | XMS_ITS | Clinical Summary ---
Author Organization [facility] ity Address [address] [place] [address] Care Team Providers Care Buggy Man Name Role Phone Unavailable Primary Care Provider [...]
--- OUTSIDE RECORDS SUMMARY | 2025-02-03 09:10 | XMS_ITS | Clinical Summary ---
Author Organization [facility] Address [address] [place] [address] Care Team Providers Care Therapy Director Name Role Phone Agus Murdock MD Primary Care Provider [phone] [phone] Allergies No known active allergies Medications Pantoprazole [...] Overview (08/29/2019): August 26, 2019: Seen at [facility] ER for ongoing abdominal pain and diagnosed [...] of Mar 2008. As of academic year [id number], no longer with resource help. Hernia, umbilical [...] 09/20/2022, 08/2022, 09/16/2022 Procedures * Due to [place] state law, this organization might not be [...] to Health Maintenance Results * Due to [place] state law, this organization might not be [...] Overview Referring Physician: Eloina Kyle NP Interpreting Spindle Frame Carver: Dr. Henrry Trammell Performing Provider: Mel Daniel NP Type of Stress Test: Exercise Treadmill with Eber Protocol Indication for Test: dizziness Baseline ECG: Normal Sinus Rhythm Patient has been assessed by SHADE CUTTER and is appropriate to proceed with testing [...] Agree with preliminary report. Procedure Note Umesh oBnilla MD - 12/21/2021 CONTRAST: 2 view Chest Xray COMPARISON: None FINDINGS: Heart and mediastinum are within normal limits. Lungs clear. No acutebony findings. IMPRESSION: 1. No acute chest disease. ADDENDUM: Agree with preliminary report. Eloina Kyle SHADE CUTTER IMG XRAY NO CONTRAST ORDERABL ES Final [...] LDL-C. Lj MONTESINOS et al. ANGÉLICA. 2013;310(19): 5010-9382 (http://education.RoboEd.Brash Entertainment/faq/NBX058) CHOL/HDL Ratio 2.9 <5.0 (calc) [facility] Cholesterol Non-HDL 105 <130 mg/dL (calc) [facility] Comment: For patients with diabetes plus 1 major ASCVD risk factor, treating to a non-HDL-C goal of <100 mg/dL (LDL-C of <70 mg/dL) is considered a therapeutic option. 05/28/2020 12:1 0 PM EDT 05/29/2020 12:58 AM EDT Narrative Resulting Agency Comment [id number] us Eloina Kyle SHADE CUTTER LABORATORY Final Result [facility] [address] [place] [address] * TYMPANOMETRY (12/13/2012) ATTACHED DOCUMENT 12/13/2012 12:00 AM EDT 12/13/2012 12/13/2012 Narrative Transcriptions Vanesa Villegas MD - 08/08/2014 12:00 AM EDT Vanesa Villegas MD PROCEDURES Final Result from Last 3 Months or Most Recently Relevant to Health Maintenance Insurance [employer] FEE FOR SERVICE PPO Care Teams Therapy Director Relationship Specialty Start Date End Date Agus Murdock MD [address] [place] [address] PCP - General Family Medicine 09/26/23
--- OUTSIDE RECORDS SUMMARY | 2025-02-03 09:10 | XMS_ITS | Encounter Summary ---
Author Organization [facility] Address [address] [place] [address] Care Team Providers Care Estate Planning Attorney Name Role Phone Agus Murdokc MD Primary Care Provider [phone] [phone] Encounter Details Date Type Department Care Team (Late st Contact Info) Description 10/17/2023 Orders Only [facility] [address] [place] [id number] Agus Murdock MD [address] [place] [address] Social History Tobacco Use Types Packs/Day Years Used Date Smoking Tobacco: Never Smokeless Tobacco: Former Comments:nicotine salt packe ts. 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 Procedure Name Priority Date/Time Associated Diagnosis Comments HELICOBACTER PYLORI UREA BREATH TEST (UBIT-(R)) Routine 10/17/2023 1:33 PM EDT Acid indigestion documented in this encounter Results * Due to [place] law, this organization might not be sharing [...] 11:33 PM EDT Narrative Resulting Agency Comment [id number] us Agus Murdock MD LABORATORY Final Res ult Performing Organization Address City/State/[facility] Co de Phone Number [facility] [address] [place] [address] documented in this encounter Visit Diagnoses Diagnosis Acid indigestion Dyspepsia and other specified disorders of function of stomach documented in this encounter Care Teams Estate Planning Attorney Relationship Specialty Start Date End Date Agus Murdock MD [address] [place] [address] PCP - General Family Medicine 09/26/23 documented as of this encounter
--- OUTSIDE RECORDS SUMMARY | 2025-02-03 09:10 | XMS_ITS | Encounter Summary ---
Author Organization [facility] Address [address] [place] [address] Care Team Providers Care Patient Intake Coordinator Name Role Phone Agus Murdock MD Primary Care Provider [phone] [phone] Encounter Details Date Type Department Care Team (Late st Contact Info) Description 11/29/2023 Orders Only [facility] [address] [place] [phone] Agus Murdock MD [address] [place] [address] Social History Tobacco Use Types Packs/Day Years Used Date Smoking Tobacco: Never Smokeless Tobacco: Former Comments:nicotine salt packe ts. 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 Procedure Name Priority Date/Time Associated Diagnosis Comments VITAMIN B12 (CYANOCOBALAMIN), SERUM Routine 11/29/2023 8:24 AM EDT Brain fog VITAMIN D, 25-HYDROXY, TOTAL, IMMUNOASSAY Routine 11/29/2023 8:24 AM EDT Brain fog documented in this encounter Results * Due to [place] e-SENS law, this organization might not be sharing negative HIV tests. * VITAMIN B12 (CYANOCOBALAMIN), SERUM (11/29/2023 8:24 AM EDT) Vitamin B12 (Cobalamins) 879 211 - 946 pg/mL [facility] 11/29/2023 8:24 AM EDT 11/29/2023 8:24 AM EDT Narrative [facility] - 11/29/2023 10:38 AM EDT Patient's primary care provider is: N/A Testing performed at: [facility], [address] [place] [address], [phone], Urgent Care Technician: Winston Cordova MD Agus Murdock MD LABORATORY Final Res ult [address] [address] DIRECTOR Winston Cordova MD * VITAMIN D, 25-HYDROXY, TOTAL, IMMUNOASSAY (11/29/2023 8:24 AM EDT) VIT D, 25-OH, TOTAL 30 >29 ng/mL [facility] Comment: Vitamin D Status 25-OH Vitamin D: Deficiency: <20 ng/mL Insufficiency: 20-29 ng/mL Optimal: > or = 30 ng/mL 11/29/2023 8:24 AM EDT 11/29/2023 8:24 AM EDT Narrative [facility] - 11/29/2023 10:38 AM EDT Patient's primary care provider is: N/A Testing performed at: [facility], [address] [place] [address], [address], Urgent Care Technician: Winston Cordova MD us Agus Murdock MD LABORATORY Final Res ult [address] [address] DIRECTOR Winston Cordova MD documented in this encounter Visit Diagnoses Diagnosis Brain fog documented in this encounter Care Teams Patient Intake Coordinator Relationship Specialty Start Date End Date Agus Murdock MD [address] [place] [address] PCP - General Family Medicine 09/26/23 documented as of this encounter
--- OUTSIDE RECORDS SUMMARY | 2025-02-03 09:10 | XMS_ITS | Encounter Summary ---
Author Organization [facility] Address [address] [place] [address] Care Team Providers Care Hot Walker Name Role Phone Eloina Kyle NP Primary Care Provider Agus Christensen MD Primary Care Provider [phone] Reason for Visit * Reason Comments Labs/orders Encounter Details Date Type Department Care Team (Late Contact Info) Description 08/27/2021 Telephone [facility] Night Triage [address] [place] [address] Eloina Kyle NP Labs/orders Social History Tobacco Use Types Packs/Day Years Used Date Smoking Tobacco: Never Smokeless Tobacco: Current Comments:nicotine salt packe ts. 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
--- OUTSIDE RECORDS SUMMARY | 2025-02-03 09:10 | XMS_ITS | Encounter Summary ---
Author Organization [facility] Address [address] [place] [address] Care Team Providers Care Laundry Aide Name Role Phone Eloina Kyle NP Primary Care Provider Agus Christensen MD Primary Care Provider [phone] Encounter Details Date Type Department Care Team (Late st Contact Info) Description 04/06/2020 Orders Only [facility] [address] [place] [address] Eloina Kyle NP Social History Tobacco Use [...] of this encounter Results * Due to [place] state law, this organization might not be [...] diagnosis of diabetes in children. According to [place] Diabetes Association (ADA) guidelines, hemoglobin A1c <7.0% represents optimal control in non- diabetic patients. Different metrics may apply to specific patient populations. Standards of Medical Care in Diabetes(ADA). Estimated Average Glucose 90 mg/dL (calc) [facility] 05/28/2020 12:1 0 PM EDT 05/29/2020 12:58 AM EDT Narrative Resulting Agency Comment [id number] Eloina Kyle NP LABORATORY Final Result [facility] [address] [place] [address] documented in this encounter Visit Diagnoses Diagnosis Screening for diabetes mellitus documented in this encounter Care Teams Laundry Aide Relationship Specialty Start Date End Date Eloina Kyle NP PCP - General Internal Medicine 03/25/20 06/18/23 Agus Murdock MD [address] [place] [id number] PCP - General Family Medicine 09/26/23 documented as of this encounter
--- OUTSIDE RECORDS SUMMARY | 2025-02-03 09:10 | XMS_ITS | Encounter Summary ---
Author Organization [facility] Address [address] [place] [address] Care Team Providers Care Golf Ball Inspector Name Role Phone Eloina Kyle NP Primary Care Provider Agus Christensen MD Primary Care Provider [phone] Encounter Details Date Type Department Care Team (Late st Contact Info) Description 08/12/2021 Orders Only [facility] [address] [place] [address] Eloina Kyle NP Social History Tobacco Use Types Packs/Day Years Used Date Smoking Tobacco: Never Smokeless Tobacco: Current Comments:nicotine salt packe ts. 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 Procedure Name Priority Date/Time Associated Diagnosis Comments VENIPUNCTURE Routine 08/12/2021 1:26 PM EDT Prentiss exposure CBC INCLUDES DIFFERENTIAL AND PLATELET COUNT [...] this encounter Results * Due to [place] state law, this organization might not be sharing negative HIV tests. * TSH, 3RD GENERATION (08/12/2021 1:26 PM EDT) TSH (Thyrotropin) 0.71 0.40 - 4.50 uIU/ml [facility] 08/12/2021 1:26 PM EDT 08/12/2021 1:26 PM EDT Narrative [facility] - 08/12/2021 2:50 PM EDT Patient's primary care provider is: N/A Testing performed at: [facility], [address] [place] [address], [id number], Cleaning And Washing Equipment Operator: Winston Cordova MD Eloina Kyle NP LABORATORY Final Result [address] [address] DIRECTOR Winston Cordova MD * IRON PROFILE (IRON/TIBC), SERUM (08/12/2021 1:26 PM EDT) Iron 92 65 - 175 ug/dL [facility] Iron Binding Capacity, Unsaturated 307.00 250.00 - 425.00 [facility] Iron saturation 29.97 20.00 - 50.00 % [facility] 08/12/2021 1:26 PM EDT 08/12/2021 1:26 PM EDT Narrative [facility] - 08/12/2021 2:50 PM EDT Patient's primary care provider is: N/A Testing performed at: [facility], [address] [place] [address], [id number], Cleaning And Washing Equipment Operator: Winston Cordova MD Eloina Kyle NP LABORATORY Final Result Performing Organization Address City/State/[facility] Co de Phone Number [address] [address] DIRECTOR Winston Cordova MD * CBC INCLUDES [...] PM EDT 08/12/2021 1:26 PM EDT Narrative [facility] - 08/12/2021 2:15 PM EDT Patient's primary care provider is: N/A Testing performed at: [facility], [address] [place] [address], [id number], Cleaning And Washing Equipment Operator: Winston Cordova MD Eloina Kyle NP LAB SAME DAY RESULT Final Res ult [address] [address] DIRECTOR Winston Cordova MD * FERRITIN (08/12/2021 1:26 PM EDT) Ferritin 143 22 - 322 ng/mL [facility] 08/12/2021 1:26 PM EDT 08/12/2021 1:26 PM EDT Narrative [facility] - 08/12/2021 2:50 PM EDT Patient's primary care provider is: N/A Testing performed at: [facility], [address] [place] [address], [id number], Cleaning And Washing Equipment Operator: Winston Cordova MD Eloina Kyle NP LABORATORY Final Result Performing Organization Address [facility]/ZIP Co de Phone Number [address] [address] DIRECTOR Winston Cordova MD * COMPREHENSIVE METABOLIC [...] GROUP Comment:If the patient is Af rican Tongan, please multiply result by 1.210 08/12/2021 1:26 PM EDT 08/12/2021 1:26 PM EDT Narrative [facility] - 08/12/2021 2:50 PM EDT Patient's primary care provider is: N/A Testing performed at: [facility], [address] [place] [address], [id number], Cleaning And Washing Equipment Operator: Winston Cordova MD Eloina Kyle LOG SNAKER LABORATORY Final Result Performing Organization Address [facility]/ZIP Co de Phone Number [address] [address] DIRECTOR Winston Cordova MD * MONONUCLEOSIS SCREEN (HETEROPHILE) (08/12/2021 1:26 PM EDT) MONOTEST Negative Negative [facility] 08/12/2021 1:26 PM EDT 08/12/2021 1:26 PM EDT Narrative [facility] - 08/12/2021 2:32 PM EDT Patient's primary care provider is: N/A Testing performed at: [facility], [address] [place] [address], [id number], Cleaning And Washing Equipment Operator: Winston Cordova MD Eloina Kyle LOG [facility] LAB SAME DAY RESULT Final Res ult [address] [address] DIRECTOR Winston Cordova MD documented in this encounter Visit Diagnoses Diagnosis Prentiss exposure Contact with or exposure to other viral diseases Fatigue, unspecified type documented in this encounter Care Teams Golf Ball Inspector Relationship Specialty Start Date End Date Eloina Kyle NP PCP - General Internal Medicine 03/25/20 06/18/23 Agus Murdock MD [address] [place] [address] PCP - General Family Medicine 09/26/23 documented as of this encounter
--- OUTSIDE RECORDS SUMMARY | 2025-02-03 09:10 | XMS_ITS | Encounter Summary ---
Author Organization [facility] Address [address] [place] [address] Care Team Providers Care Food Service Substitute Name Role Phone Eloina Kyle NP Primary Care Provider Agus Christensen MD Primary Care Provider [phone] Encounter Details Date Type Department Care Team (Late st Contact Info) Description 05/28/2020 Orders Only [facility] [address] [place] [address] Eloina Kyle NP Social History Tobacco Use Types Packs/Day Years Used Date Smoking Tobacco: Never Smokeless Tobacco: Never Alcohol Use Standard Drinks/Week Comments Not Asked 0 (1 standard drink = 0.6 oz pur e alcohol) PHQ-2 Answer Date [facility]ed [facility] SEVERITY SCORE (Range 0-6) 0 05/06/2020 Sex and Gender Information Value Date Recorded Sex Assigned at Male 05/06/2020 3:49 PM EDT Legal Sex Male 8:44 PM EST Gender Identity Male 05/06/2020 3:49 PM EDT Sexual Orientation Straight 05/06/2020 3: 49 PM EDT Occupation Industry Job Start Date Job End Date 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 Procedure Name Priority Date/Time Associated Diagnosis Comments VENIPUNCTURE Routine 05/28/2020 12:10 PM EDT Screening for diabetes mellitus LIPID PANEL WITH REFLEX TO DIRECT LDL Routine 05/28/2020 12:10 PM EDT Lipid screening documented in this encounter Results * Due to [place] SEC Watch law, this organization might not be sharing [...] LDL-C. Lj MONTESINOS et al. ANGÉLICA. 2013;310(19): 7864-4687 (http://education.TrendBent.Pixta/faq/EWB837) CHOL/HDL Ratio 2.9 <5.0 (calc) [facility] Cholesterol Non-HDL 105 <130 mg/dL (calc) [facility] Comment: For patients with diabetes plus 1 major ASCVD risk factor, treating to a non-HDL-C goal of <100 mg/dL (LDL-C of <70 mg/dL) is considered a therapeutic option. 05/28/2020 12:1 0 PM EDT 05/29/2020 12:58 AM EDT Narrative Resulting Agency Comment [id number] Eloina Kyle PRODUCT INSPECTION COORDINATOR LABORATORY Final Result Performing Organization Address City/[facility] Co de Phone Number [facility] [address] [place] [address] * HEMOGLOBIN A1C (05/28/2020 12:10 PM EDT) [...] diagnosis of diabetes in children. According to [place] Diabetes Association (ADA) guidelines, hemoglobin A1c <7.0% represents optimal control in non- diabetic patients. Different metrics may apply to specific patient populations. Standards of Medical Care in Diabetes(ADA). Estimated Average Glucose 90 mg/dL (calc) [facility] 05/28/2020 12:1 0 PM EDT 05/29/2020 12:58 AM EDT Narrative Resulting Agency Comment [id number] Eloina Kyle PRODUCT INSPECTION COORDINATOR LABORATORY Final Result Performing Organization Address [facility] Co de Phone Number [facility] [address] [place] [address] documented in this encounter Visit Diagnoses Diagnosis Screening for diabetes mellitus Lipid screening Screening for lipoid disorders documented in this encounter Care Teams Food Service Substitute Relationship Specialty Start Date End Date Eloina Kyle NP PCP - General Internal Medicine 03/25/20 06/18/23 Agus Murdock MD [address] [place] [address] PCP - General Family Medicine 09/26/23 documented as of this encounter
[2025-02-03 14:36] LABS: Alanine Aminotransferase 25 U/L (0-40); Albumin Level 4.7 g/dL (3.5-5.0); Alkaline Phosphatase 57 U/L (39-117); Anion Gap 12 (12-20); Aspartate Amino Transferase 27 U/L (5-37); Blood Urea Nitrogen 18 mg/dL (9-16); Calcium 9.8 mg/dL (8.4-10.2); Carbon Dioxide 27 mmol/L (22-29); Chloride 105 mmol/L (96-108); Estimated Glomerular Filt Rate > 60; Potassium 4.1 mmol/L (3.3-5.1); Sodium 140 mmol/L (135-145); Total Protein 7.1 g/dL (6.5-8.0)
== END 2025-02-03 08:46 | disposition home or self-care (01) ==
LOC: HO.HKASLDS 08:45
PROVIDERS: PCP Student in an Organized Health Care Education/Training Program; Visit Provider Student in an Organized Health Care Education/Training Program
DX: R74.8 Abnormal levels of other serum enzymes (principal)
CPT/HCPCS: 36415; 80053